=== PATIENT | female | born 1990 | race Caucasian/White ===

== ENCOUNTER 2021-03-03 11:54 | Emergency (ER) | payer MEDICAID, SELFPAY ==
--- NOTE | ~2021-03-03 | US_ITS ---
EXAMINATION: US OB <= 14 weeks fetus DATE: 03/03/2021 14:49 INDICATION: Vaginal bleeding during first trimester of TECHNIQUE: Real-time pelvic ultrasound utilizing both a transvaginal and transabdominal probe was pe rformed. The interpreting radiologist was not present for the study. COMPARISON: None. FINDINGS: The uterus measures 7.8 x 6.0 x 6.9 cm. There is an intrauterine gestational sac. A yolk sac and fet al pole are identified. The crown rump length measures 8 mm, which correlates with an estimated gesta tional age of 6 weeks and 5 days. heart motion is identified measuring 122 beats per minute (bp m) by M-mode Doppler. 6 x 3 x 2 mm anechoic subchorionic hematoma. The right ovary measures 2.4 x 2.5 x 2.1 cm. The left ovary measures 2.2 x 2.1 x 1.6 cm. Vascular mariama w with arterial waveforms identified in both ovaries on color Doppler There is no free fluid in the p che[place]. IMPRESSION: 1. Single living fetus with heart rate of 122 bpm. 2. Gestational age by ultrasound of 6 weeks 5 day(s) +/- 4 day(s) with ultrasound estimated date of delivery (AISLINN) of 10/22/2021. 3. 5 x 3 x 2 mm subchorionic hematoma. Reviewed, dictated and finalized at location A. IMPRESSION: 1. Single living fetus with heart rate of 122 bpm. 2. Gestational age by ultrasound of 6 weeks 5 day(s) +/- 4 day(s) with ultraso und estimated date of delivery (AISLINN) of 10/22/2021. 3. 5 x 3 x 2 mm subchorionic hematoma.
[2021-03-03 11:57] VITALS: BP 105/90; PULSE 98; RESP 18; TEMP 36.5; O2SAT 100
[2021-03-03 12:39] LABS: Basophils Absolute Auto 0.1 K/mm3 (0.0-0.1); Basophils Percent Auto 0.7 % (0.2-1.2); Eosinophils Absolute Auto 0.1 K/mm3 (0-0.3); Eosinophils Percent Auto 1.6 % (0-4.4); Hematocrit 37.5 % (37.0-47.0); Hemoglobin 12.2 g/dL (12.0-15.0); Immature Granulocyte Absolute 0.03 K/mm3 (0.00-0.031); Immature Granulocyte Percent A 0.4 % (0-0.5); Lymphocytes Absolute Auto 1.35 K/mm3 (0.9-3.2); Lymphocytes Percent Auto 16.2 % (18.3-44.2); Mean Corpuscular HGB Conc 32.5 g/dl (32-36); Mean Corpuscular Hemoglobin 32.3 pg (26-34); Mean Corpuscular Volume 99.2 fl (80-100); Mean Platelet Volume 9.2 fl (7.4-10.4); Monocytes Absolute Auto 0.6 K/mm3 (0.1-0.6); Monocytes Percent Auto 7.5 % (2.6-8.5); Neutrophils Absolute Auto 6.2 K/mm3 (1.3-6.7); Neutrophils Percent Auto 73.6 % (45.5-73.1); Platelet Count Result 251 k/mm3 (150-375); Red Blood Count 3.78 M/mm3 (4.2-5.4); Red Cell Distribution Width 12.8 % (11.5-14.5); White Blood Count 8.4 K/mm3 (4.5-10.0)
--- NOTE | 2021-03-03 13:56 | ED.FEMALEGU ---
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 Stated complaint: vaginal bleeding, cramping, Time Seen by Provider: 03/03/21 13:01 Source: patient Mode of arrival: ambulatory Limitations: no limitations History of Present Illness HPI Narrative: 30-year-old female Here for evaluation of first trimester vaginal bleeding Patient is a Her last normal period was January 12 which would make her approximately 7 weeks by dates, however she does say that she has had some spotting since then and that her periods are always irregular She had a positive home test earlier this week and is 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 She reports some mild discomfort in the lower right abdomen and some brownish vaginal discharge which has been present for 3 or 4 days but increased today She does not report gross blood or clots No urinary symptoms Review of Systems Review of Systems: All systems reviewed & are unremarkable except as noted in HPI and below Constitutional: Constitutional: Reports no additional constitutional complaints, Denies chills, Denies fever(s) and Denies headache(s) Eyes: Eyes: Reports no additional eye complaints and Denies change in vision ENT: Denies headache(s) and Denies sore throat Cardiovascular: Cardiovascular: Denies chest pain and Denies dyspnea Respiratory: Respiratory: Denies cough and Denies dyspnea Gastrointestinal: Gastrointestinal: Denies abdominal pain, Denies diarrhea and Denies vomiting Genitourinary: Genitourinary: Denies urinary frequency and Denies dysuria Musculoskeletal: Musculoskeletal: Denies deformity, Denies arthralgias, Denies joint swelling and Denies numbness Integumentary/Breasts: Skin/Breast: Denies rash and Denies wounds Neurologic: Denies headache(s), Denies focal weakness and Denies numbness Psychiatric: Psychiatric: Reports no additional psychiatric complaints Endocrine: Endocrine: Reports no additional endocrine complaints Hematologic/Lymphatic: Hematologic/Lymphatic: Reports no additional hematologic/lymphatic complaints Allergic/Immunologic: Allergic/Immunologic: Reports no additional allergic/immunologic complaints [facility] Past Medical History Medical History (Updated 03/03/21 @ 15:35 by Lex Snyder MD) Therapeutic Exam Const: General: cooperative, no acute distress and alert Nutritional Appearance: thin Orientation/consciousness: patient oriented x3 (alert) HENMT: Head: normal to inspection, normocephalic and atraumatic Ears: external ears normal General nose exam: no epistaxis Eyes: Conjunctivae: conjunctivae normal EOM: EOMs intact bilaterally Neck: Neck: normal visual inspection, supple and no JVD Resp: Effort & Inspection: normal respiratory effort and not labored Auscultation: no rales, no rhonchi, no wheezes and other (BS =) Cardio: Rate: regular rate Rhythm: regular rhythm Heart sounds: no murmurs GI: Inspection: non-distended GI Palp: Yes Soft to palpation, No Tenderness to palpation present (GI), No Guarding due to palpation present (GI) and No Rebound tenderness present : General: Yes no CVA tenderness Other: Cervix is closed, there is no blood, there is a little bit of mucoid discharge Skin: General skin exam: normal color and no rashes or lesions noted Neuro: General: patient oriented x3 (alert) and moves all extremities Speech: normal speech Extrem: General: normal to inspection and no pedal edema Psych: Affect: normal affect Course Course Emergency Course: Did discuss that spotting in the first trimester confers a risk of miscarriage, and that the heart rate he has may be a little slower than would like to see so will be important for her to be closely followed up in the office this week Vital Signs Vital signs: Vital Signs Temperature 36.5 C 03/03/21 11:57 Pulse Rate 98 03/03/21 11:57 Respiratory Rate 18 03/03/21 11:57 Blood Pressure 105/90 03/03/21 11:57
[2021-03-03 15:44] VITALS: BP 117/79; PULSE 104; RESP 16; O2SAT 100
== END 2021-03-03 15:44 | disposition home or self-care (01) ==
PROVIDERS: Emergency Provider Emergency Medicine
DX: O20.0 Threatened abortion (principal); Z3A.01 Less than 8 weeks gestation of pregnancy
CPT/HCPCS: 36415; 76801; 84702; 85025; 85461; 99284

== ENCOUNTER 2021-04-09 09:59 | Outpatient (CLI) | payer MEDICAID, SELFPAY ==
[2021-04-09 11:23] LABS: Vitamin D 25 Hydroxy 23.6 ng/mL
[2021-04-09 11:25] LABS: Basophils Absolute Auto 0.1 K/mm3 (0.0-0.1); Basophils Percent Auto 0.6 % (0.2-1.2); Eosinophils Absolute Auto 0.2 K/mm3 (0-0.3); Eosinophils Percent Auto 1.6 % (0-4.4); Hematocrit 33.3 % (37.0-47.0); Hemoglobin 11.4 g/dL (12.0-15.0); Immature Granulocyte Absolute 0.05 K/mm3 (0.00-0.031); Immature Granulocyte Percent A 0.5 % (0-0.5); Lymphocytes Absolute Auto 1.28 K/mm3 (0.9-3.2); Lymphocytes Percent Auto 12.6 % (18.3-44.2); Mean Corpuscular HGB Conc 34.2 g/dl (32-36); Mean Corpuscular Hemoglobin 32.6 pg (26-34); Mean Corpuscular Volume 95.1 fl (80-100); Mean Platelet Volume 9.4 fl (7.4-10.4); Monocytes Absolute Auto 0.6 K/mm3 (0.1-0.6); Monocytes Percent Auto 6.1 % (2.6-8.5); Neutrophils Percent Auto 78.6 % (45.5-73.1); Platelet Count Result 291 k/mm3 (150-375); Red Cell Distribution Width 13.1 % (11.5-14.5); White Blood Count 10.1 K/mm3 (4.5-10.0)
[2021-04-09 11:38] LABS: Thyroid Stimulating Hormone 0.963 uIU/mL (0.465-4.680)
[2021-04-09 11:43] LABS: Hepatitis B Surface Antigen Negative (Negative); Rubella IgG Antibody 61.4 IU/ML
[2021-04-09 11:50] LABS: HIV 1/2 Ab P24 Ag Result Negative (Negative)
[2021-04-09 11:54] LABS: Hepatitis C Virus Antibody Negative (Negative)
[2021-04-11 13:45] LABS: Varicella IgG Antibody <135.00 Index (>=165.00)
[2021-04-13 07:20] LABS: Rapid Plasma Reagin Non-Reactive (NonReactive)
== END 2021-04-09 10:00 | disposition home or self-care (01) ==
PROVIDERS: Visit Provider Obstetrics & Gynecology
DX: Z34.90 Encounter for supervision of normal pregnancy, unspecified, unspecified trimester (principal)
CPT/HCPCS: 36415; 82306; 84443; 85025; 86592; 86703; 86762; 86787; 86803; 87340; G0432

== ENCOUNTER 2021-05-05 10:58 | Outpatient (CLI) | payer BC, SELFPAY ==
[2021-05-14 19:46] LABS: CF Result NEGATIVE (NEGATIVE); Ethnicity NG
== END 2021-05-05 10:59 | disposition home or self-care (01) ==
PROVIDERS: Visit Provider Obstetrics & Gynecology
DX: Z34.90 Encounter for supervision of normal pregnancy, unspecified, unspecified trimester (principal)
CPT/HCPCS: 36415; 81220

== ENCOUNTER 2021-06-04 10:40 | Outpatient (CLI) | payer BC, SELFPAY ==
--- NOTE | ~2021-06-04 | US_ITS ---
EXAMINATION: US OB /maternal detail DATE: 06/04/2021 11:38 INDICATION: Second trimester anatomic survey TECHNIQUE: Real-time ultrasound of the pelvis was performed. COMPARISON: None. FINDINGS: There is a single living fetus in vertex presentation. The placenta is posterior. There appears to be a venous marcial the placenta near the cord insertion. heart rate is 148 beats per minute (bpm). cardiac activity and movement are noted. The amniotic fluid index is subjectively normal . The following anatomy was identified as normal: 4 chamber heart 3 vessel cord cord insertion kidneys urinary bladder stomach spine diaphragm ventricles cisterna magna cerebellum The following biometric data were obtained: Biparietal diameter (BPD): 5.1 cm; head circumference (HC): 18.9 cm; abdominal circumference (AC): 15 .1 cm; femur length (FL): 3.3 cm. These measurements are concordant. Estimated weight is 256 g +/- 53 g, which correlates with the 73rd percentile when 10/22/2021 is used as estimated date of delivery. As single measurements, these parameters are each equal to the following estimated gestational ages w ith ranges of +/- 2 standard deviations: BPD: 21 weeks 4 days +/- 1 weeks 5 days. HC: 21 weeks 2 days +/- 1 weeks 3 days. AC: 20 weeks 2 days +/- 2 weeks 0 days. FL: 20 weeks 2 days +/- 1 weeks 6 days. estimated gestational age based solely on measurements from this exam is 20 weeks 6 days +/- 1 weeks 3 days. IMPRESSION: 1. Single living fetus in vertex presentation. 2. Estimated weight is 256 g +/- 53 g, which correlates with the 73rd percentile when 10/22/2021 is used as estimated date of delivery. Reviewed, dictated and finalized at location F. CAL CENTER MANAGER IMPRESSION: 1. Single living fetus in vertex presentation. 2. Estimated weight is 256 g +/- 53 g, which correlates with the 73rd per centile when 10/22/2021 is used as estimated date of delivery.
== END 2021-06-04 10:41 | disposition home or self-care (01) ==
PROVIDERS: Visit Provider Obstetrics & Gynecology
DX: Z36.3 Encounter for antenatal screening for malformations (principal)
CPT/HCPCS: 76805

== ENCOUNTER 2021-06-18 11:23 | Observation (INO) | payer BC, SELFPAY ==
--- NOTE | ~2021-06-18 | US_ITS ---
US OB limited 06/18/2021 12:49 Indication: Placental check. Evaluate well-being. Procedure: High-resolution Limited obstetrical ultrasound Comparison: 06/04/2021 Findings: There is a single living intrauterine in vertex presentation. Placenta is posteri or measuring 5.4 cm to the cervix. heart rate is 153 BPM. Amniotic fluid is subjectively normal . Impression: 1: Single living intrauterine in vertex presentation. 2: Posterior placenta without previa. Reviewed, dictated and finalized at location B. MUSICIAN Impression: 1: Single living intrauterine in vertex presentation. 2: Posterior placenta without previa.
--- NOTE | 2021-06-18 11:49 | OBADM ---
This patient, Jignesh Cerna, admitted to the OB room OB Post 115 for observation. Patient/family oriented to hospital policies and general routines including ID bracelet, bed and alarms, visiting hours, pain management, procedures, bathroom and other care routines, personal items, smoking policy, room service/diet, and visiting hours. Patient/Family are encouraged to report perceived risks to care and to ask questions if they do not understand what they are told or what they should do.
--- NOTE | 2021-06-18 11:54 | PC.NURSE ---
FHT doppled at 150
--- NOTE | 2021-06-18 12:02 | PC.NURSE ---
1150- Spoke with Dr. Thompson, orders for placenta check and well being US, FHT doppled at 150 and UA sent.
[2021-06-18 12:24] LABS: Add Urine Microscopic? YES; Appearance Urine Clear (Clear); Bilirubin Urine Negative (Negative); Blood Urine Negative (Negative); Color Urine Straw (Yellow); Glucose Urine UA Negative (Negative); Ketones Urine Negative (Negative); Leukocyte Esterase Ur 1+ LEU/UL (NEGATIVE); Mucus Urine Rare /lpf; Nitrate Urine Negative (Negative); Protein Urine Negative (Negative); RBC Urine 0-2 /hpf (0-2); Specific Grav Ur 1.006 (1.001-1.035); Squamous Epithelial Cell Urine Rare /hpf (Few); Urobilinogen Urine Negative mg/dL (<2.0)
--- NOTE | 2021-06-18 13:02 | PC.NURSE ---
1255- Reviewed urine and US results. Orders to discharge to home on pelvic rest.
--- NOTE | 2021-07-15 22:59 | PM.OBTRLD ---
OB - Triage/Final Diagnosis Visit Information Comments/Additional reasons for admission: I have assessed the risk for this patient, Jignesh Cerna, and determined that she would benefit from observation care. Evaluation Laboratory results: Laboratory Tests 06/18/21 11:45 Urine Color Straw Urine Appearance Clear Urine pH 8.0 Ur Specific [place] 1.006 Urine Protein Negative Urine Glucose (UA) Negative Urine Ketones Negative Ur Blood (Man) Negative Urine Nitrate Negative Urine Bilirubin Negative Urine Urobilinogen Negative Ur Leukocyte Esterase 1+ H Urine RBC 0-2 Urine WBC 4-6 H Ur Squamous Epith Cells Rare Urine Mucus Rare Final Diagnosis (1) Spotting affecting in second trimester: Code(s): O26.852 - Spotting complicating , second trimester Status: Acute
== END 2021-06-18 13:02 | disposition home or self-care (01) ==
PROVIDERS: Admitting Provider Obstetrics & Gynecology; Visit Provider Obstetrics & Gynecology
DX: O26.852 Spotting complicating pregnancy, second trimester (principal); Z3A.22 22 weeks gestation of pregnancy
CPT/HCPCS: 76815; 81001; 87086; G0378; G0379

== ENCOUNTER 2021-07-02 09:19 | Outpatient (CLI) | payer BC, SELFPAY ==
[2021-07-02 11:03] LABS: Hematocrit 30.6 % (37.0-47.0); Mean Corpuscular HGB Conc 32.7 g/dl (32-36); Mean Corpuscular Hemoglobin 32.6 pg (26-34); Mean Corpuscular Volume 99.7 fl (80-100); Mean Platelet Volume 9.2 fl (7.4-10.4); Platelet Count Result 273 k/mm3 (150-375); Red Blood Count 3.07 M/mm3 (4.2-5.4); White Blood Count 9.8 K/mm3 (4.5-10.0)
[2021-07-02 11:13] LABS: Glucose 1 Hour PP 50gm Dose 112 mg/dL
[2021-07-02 11:52] LABS: Free T4 Free Thyroxine 0.75 ng/mL (0.78-2.19)
== END 2021-07-02 09:20 | disposition home or self-care (01) ==
LOC: ANHLAB 09:22
PROVIDERS: Visit Provider Obstetrics & Gynecology
DX: Z34.90 Encounter for supervision of normal pregnancy, unspecified, unspecified trimester (principal); R00.2 Palpitations
CPT/HCPCS: 36415; 82947; 84439; 84443; 85027

== ENCOUNTER 2021-07-30 09:53 | Outpatient (CLI) | payer BC, SELFPAY ==
[2021-07-30 10:54] LABS: Thyroid Stimulating Hormone 0.912 uIU/mL (0.465-4.680)
[2021-07-30 10:57] LABS: Free T4 Free Thyroxine 0.93 ng/mL (0.78-2.19)
[2021-07-30 11:03] LABS: HIV 1/2 Ab P24 Ag Result Negative (Negative)
[2021-07-31 10:36] LABS: Rapid Plasma Reagin Non-Reactive (NonReactive)
[2021-08-02 05:39] LABS: Triiodothyronine T3 Free 2.8 pg/mL (2.3-4.2)
== END 2021-07-30 09:54 | disposition home or self-care (01) ==
LOC: ANHLAB 09:56
PROVIDERS: Visit Provider Obstetrics & Gynecology
DX: Z34.90 Encounter for supervision of normal pregnancy, unspecified, unspecified trimester (principal); R79.89 Other specified abnormal findings of blood chemistry
CPT/HCPCS: 36415; 84439; 84443; 84481; 86592; 86703; G0432

== ENCOUNTER 2021-09-24 13:34 | Outpatient (CLI) | payer BC, SELFPAY ==
--- NOTE | ~2021-09-24 | US_ITS ---
EXAMINATION: US OB follow up DATE: 09/24/2021 15:16 INDICATION: Uterine size-date discrepancy. Third trimester . TECHNIQUE: Real-time ultrasound of the pelvis was performed. The interpreting radiologist was not pre sent for the study. COMPARISON: 06/18/2021 FINDINGS: There is a single living fetus in vertex presentation. The placenta is fundal. heart rate is 1 40 beats per minute (bpm). The amniotic fluid index is 8.6 cm, which is normal (5th%-95%: 7.7-24.9 c m at 36 weeks estimated gestational age). The following biometric data were obtained: BPD: 9.5 cm -> 38 weeks 5 days Head circumference: 32.7 cm -> 37 weeks 1 days Abdominal circumference: 33.0 cm -> 36 weeks 6 days Femur length: 7.0 cm -> 35 weeks 5 days Brachycephaly with mildly increased cephalic index of 86.8 (normal range 70.0-86.0). These measurements are otherwise concordant. Head circumference to abdominal circumference ratio: 0.99 (normal range 0.92-1.05). Estimated weight: 3047 g (+/-) 457 g or 6 lbs. 11 oz. (+/-) 16 oz. IMPRESSION: 1. Single living fetus in vertex presentation with heart rate of 140 bpm. 2. Normal amniotic fluid index of 20.6 cm. 3. Estimated weight is 65th percentile by Hadlock criteria when 10/19/2021 is used as the estima mel date of delivery (AISLINN). Please correlate with clinical information or earlier ultrasounds for mos t accurate AISLINN. 4. Brachycephaly with mildly increased cephalic index of 86.8. Reviewed, dictated and finalized at location A. IMPRESSION: 1. Single living fetus in vertex presentation with heart rate of 140 bpm. 2. Normal amniotic fluid index of 20.6 cm. 3. Estimated weight is 65th percentile by Hadlock criteria when 10/19/2021 is used as the estimated date of delivery (AISLINN). Please correlate with clinica l information or earlier ultrasounds for most accurate AISLINN. 4. Brachycephaly with mildly increased cephalic index of 86.8.
== END 2021-09-24 13:35 | disposition home or self-care (01) ==
LOC: ANHIMG 13:35
PROVIDERS: Visit Provider Obstetrics & Gynecology
DX: O26.843 Uterine size-date discrepancy, third trimester (principal); Q75.0 Craniosynostosis; Z3A.00 Weeks of gestation of pregnancy not specified
CPT/HCPCS: 76816

== ENCOUNTER 2021-10-19 14:58 | Inpatient (IN) | payer BC, SELFPAY ==
[2021-10-19] VITALS (76 sets, daily range): BP systolic 93–145; BP diastolic 49–116; PULSE 86–136; TEMP 36.1–36.8; O2SAT 95–100; BMI 34.1
[2021-10-19] MEDS: LACTATED RINGERS 1,000 ML 125 ML IV CONT ×3 (16:59→19:22)
[2021-10-19 17:02] LABS: Basophils Percent Auto 0.3 % (0.2-1.2); Eosinophils Absolute Auto 0.1 K/mm3 (0-0.3); Eosinophils Percent Auto 0.5 % (0-4.4); Hematocrit 37.1 % (37.0-47.0); Hemoglobin 12.4 g/dL (12.0-15.0); Immature Granulocyte Absolute 0.09 K/mm3 (0.00-0.031); Immature Granulocyte Percent A 0.9 % (0-0.5); Lymphocytes Absolute Auto 0.93 K/mm3 (0.9-3.2); Lymphocytes Percent Auto 9.1 % (18.3-44.2); Mean Corpuscular HGB Conc 33.4 g/dl (32-36); Mean Corpuscular Hemoglobin 32.3 pg (26-34); Mean Corpuscular Volume 96.6 fl (80-100); Mean Platelet Volume 10.3 fl (7.4-10.4); Monocytes Absolute Auto 0.6 K/mm3 (0.1-0.6); Monocytes Percent Auto 5.4 % (2.6-8.5); Neutrophils Absolute Auto 8.6 K/mm3 (1.3-6.7); Neutrophils Percent Auto 83.8 % (45.5-73.1); Platelet Count Result 214 k/mm3 (150-375); Red Blood Count 3.84 M/mm3 (4.2-5.4); Red Cell Distribution Width 14.4 % (11.5-14.5); White Blood Count 10.2 K/mm3 (4.5-10.0)
--- NOTE | 2021-10-19 18:01 | WPDANESEPPF ---
Anes - Initial Pre Proc Eval Procedure: labor epidural Date/Time: 10/19/21 18:01 Surgeon: Faizan Thompson MD Pre Op Diagnosis: labor pain Pre Op Diagnosis: Labor Patient Data Age: 31 Gender: F Height: 1.65 m Weight: 93 kg Last Vital Signs Temp 36.2 C L 10/19/21 17:59 Pulse 102 H 10/19/21 18:00 BP 118/86 10/19/21 18:00 Pulse Ox 100 10/19/21 17:59 O2 Del Method Room Air 10/19/21 17:01 Allergies Allergy/AdvReac Type Severity Reaction Status Date / Time No Known Allergies Allergy Verified 10/19/21 17:08 Home Medications Medication Instructions Recorded Confirmed Type [id number] 400 mcg-om3 35 mg-dha 25 1 tablet PO TID 03/07/21 10/19/21 History mg-epa 5 mg-fish oil chewable tablet ferrous sulfate 325 mg (65 mg 325 mg PO DAILY 07/30/21 10/19/21 History iron) tablet,delayed release levothyroxine 25 mcg capsule 25 mcg PO DAILY #90 caps 08/02/21 10/19/21 Rx diphenhydramine HCl 25 mg capsule 25 mg PO HS PRN Allergy Symptoms 10/19/21 10/19/21 History (Benadryl) Laboratory Tests 10/19/21 10/19/21 10/19/21 16:54 16:54 16:54 WBC 10.2 K/mm3 H K/mm3 (4.5-10.0) RBC 3.84 M/mm3 L M/mm3 (4.2-5.4) Hgb 12.4 g/dL g/dL (12.0-15.0) Hct 37.1 % % (37.0-47.0) MCV 96.6 fl fl (80-100) MCH 32.3 pg pg (26-34) MCHC 33.4 g/dl g/dl (32-36) RDW 14.4 % % (11.5-14.5) Plt Count 214 k/mm3 k/mm3 (150-375) MPV 10.3 fl fl (7.4-10.4) Immature Gran % (Auto) 0.9 % H % (0-0.5) Neut % (Auto) 83.8 % H % (45.5-73.1) Lymph % (Auto) 9.1 % L % (18.3-44.2) O'Brien % (Auto) 5.4 % % (2.6-8.5) Eos % (Auto) 0.5 % % (0-4.4) Baso % (Auto) 0.3 % % (0.2-1.2) Lymph # (Auto) 0.93 K/mm3 K/mm3 (0.9-3.2) O'Brien # (Auto) 0.6 K/mm3 K/mm3 (0.1-0.6) Eos # (Auto) 0.1 K/mm3 K/mm3 (0-0.3) Baso # (Auto) 0.0 K/mm3 K/mm3 (0.0-0.1) Abs Immat Gran (auto) 0.09 K/mm3 H K/mm3 (0.00-0.031) Absolute Neuts (auto) 8.6 K/mm3 H K/mm3 (1.3-6.7) Absolute Nucleated RBC 0.0 K/mm3 K/mm3 (0.0-0.012) Nucleated RBC % 0.0 % % (0.0-0.2) RPR Pending Blood Type A Positive Antibody Screen Negative Patient hx anesthesia problems: none Family hx anesthesia problems: none Results Review: All pre-operative results and documents have been reviewed as part of the pre-operative evaluation. [facility] Past Medical History Medical History (Updated 10/19/21 @ 18:01 by Blaze Yan DO) x1 Anxiety Bipolar disorder Hypothyroidism Surgical History Surgical History History of placement of ear tubes Family History Family History Father Depression Anxiety Mother Breast cancer Diagnosed at age 58 Anxiety Depression Sibling Alcoholism Anxiety Depression Grandparent Alcoholism Breast cancer Hypertension Cerebrovascular accident Grandparent Alcoholism Social History Social History Smoking status: Former smoker Tobacco type: cigarettes Smoking end date: 01/24/21 Alcohol intake: never Substance use: never Spiritual care concerns: No Anes - Eval Final PreProcedure Day of Procedure 10/19/21 18:01 Patient weight: obese ASA classification: III Anesthetic plan: proceed Anesthesia type and monitoring: regional epidural and standard monitoring Results Review: All pre-operative results and documents have been reviewed as part of the pre-operative evaluation. Informed Consent: The patient's anesthetic plan and its attendant risks and benefits were discussed with the patient/family/POA. Questions were solicited and answ
[2021-10-19] MEDS: ONDANSETRON INJ 4 MG/2 ML VIAL IV PUSH (20:18)
[2021-10-19] MEDS: OXYTOCIN 30 UNITS/NS 500 ML 30 UNITS/500 ML BAG 999 UNITS IV CONT (21:33)
[2021-10-19] MEDS: OXYTOCIN 30 UNITS/NS 500 ML 30 UNITS/500 ML BAG 125 UNITS IV CONT (21:56)
--- NOTE | 2021-10-19 21:57 | PM.IMHP ---
H&P: HPI History of Present Illness Date/Time: 10/19/21 21:57 Patient is a LMP 01/12/21 currently 40 weeks gestation with AISLINN 10/19/2021 who presented to labor and delivery with complaints of contractions. Patient reports contractions throughout the day. Patient reports an increase in frequency and intensity of contractions. Upon arrival to labor and delivery, patient was noted to be approximately 5 cm dilated. Patient was observed and continued to make cervical change. Decision was made to admit patient in active labor. Chief Complaint: Contractions Review of Systems Review of Systems: All systems reviewed & are unremarkable except as noted in HPI and below Constitutional: Constitutional: Reports no additional constitutional complaints, Denies chills, Denies fever(s) and Denies headache(s) Eyes: Eyes: Reports no additional eye complaints and Denies change in vision ENT: Denies headache(s) and Denies sore throat Cardiovascular: Cardiovascular: Denies chest pain and Denies dyspnea Respiratory: Respiratory: Denies cough and Denies dyspnea Gastrointestinal: Gastrointestinal: Denies abdominal pain, Denies diarrhea and Denies vomiting Genitourinary: Genitourinary: Denies urinary frequency and Denies dysuria Musculoskeletal: Musculoskeletal: Denies deformity, Denies arthralgias, Denies joint swelling and Denies numbness Integumentary/Breasts: Skin/Breast: Denies rash and Denies wounds Neurologic: Denies headache(s), Denies focal weakness and Denies numbness Psychiatric: Psychiatric: Reports no additional psychiatric complaints Endocrine: Endocrine: Reports no additional endocrine complaints Hematologic/Lymphatic: Hematologic/Lymphatic: Reports no additional hematologic/lymphatic complaints Allergic/Immunologic: Allergic/Immunologic: Reports no additional allergic/immunologic complaints [facility] Past Medical History Medical History x1 Anxiety Bipolar disorder Hypothyroidism Surgical History Surgical History History of placement of ear tubes Family History Family History Father Depression Anxiety Mother Breast cancer Diagnosed at age 58 Anxiety Depression Sibling Alcoholism Anxiety Depression Grandparent Alcoholism Breast cancer Hypertension Cerebrovascular accident Grandparent Alcoholism Social History Social History Smoking status: Former smoker Tobacco type: cigarettes Smoking end date: 01/24/21 Alcohol intake: never Substance use: never Spiritual care concerns: No Meds Home Medications and Allergies Home Medications Medication Instructions Recorded Confirmed Type [id number] 400 mcg-om3 35 mg-dha 25 1 tablet PO TID 03/07/21 10/19/21 History mg-epa 5 mg-fish oil chewable tablet ferrous sulfate 325 mg (65 mg 325 mg PO DAILY 07/30/21 10/19/21 History iron) tablet,delayed release levothyroxine 25 mcg capsule 25 mcg PO DAILY #90 caps 08/02/21 10/19/21 Rx diphenhydramine HCl 25 mg capsule 25 mg PO HS PRN Allergy Symptoms 10/19/21 10/19/21 History (Benadryl) Allergies Allergy/AdvReac Type Severity Reaction Status Date / Time No Known Allergies Allergy Verified 10/19/21 17:08 Vital Signs Vital Signs - 24 hr 10/19/21 16:46 10/19/21 17:00 10/19/21 15:16 Temperature 36.1 C L Pulse Rate 97 89 Blood Pressure 119/76 129/82 Pulse Oximetry Oxygen Delivery 10/19/21 17:15 10/19/21 17:30 10/19/21 17:46 Temperature Pulse Rate 92 103 H Blood Pressure 124/88 134/89 Pulse Oximetry 99 Oxygen Delivery 10/19/21 17:47 10/19/21 17:51 10/19/21 17:52 Temperature Pulse Rate 101 H 101 H Blood Pressure 140/79 128/82 Pulse Oximetry 98 Oxygen Delivery 10/19/21 17:54 10/19/21 17:56
--- NOTE | 2021-10-19 22:06 | PM.OBPRVD ---
OB - Delivery Note Procedure Delivery date: 10/19/21 Procedure: The patient is a 31-year-old now who presented to labor and delivery in active labor on 10/19/2021 at 40 weeks gestation. Patient was admitted and was noted to be 5 cm dilated at time of presentation. Patient continued to make progressive cervical change on her own. Patient became uncomfortable and requested an epidural for pain management which was placed without difficulty. Patient continued to progress on her own and was noted to be fully dilated at 7:45 p.m. Patient was encouraged to push. She experienced spontaneous rupture of membranes at 8:07 p.m. Patient continued to push and was found to be pushing well. Patient was prepped and draped for delivery. At 9:30 p.m., patient delivered infant head atraumatically and without difficulty in MIRA presentation. Occiput restituted to maternal left side. With subsequent push, the 's neck, shoulders, and rest of body delivered without difficulty. Infant was crying spontaneously. Infant's nose and mouth were suctioned with bulb suction. was placed on maternal abdomen where care was assumed by awaiting nursing staff. Delayed cord clamping was performed for approximately 60 seconds. Cord was clamped and cut. A segment of cord was collected for cord gases. Cord blood was collected. The placenta was delivered spontaneously and intact. Uterine fundus was noted to be firm with massage. On inspection, a second-degree perineal laceration was noted. This laceration was repaired with 2-0 vicryl in the usual fashion. Excellent hemostasis was noted. Estimated blood loss for entire delivery was 250 cc. The infant was a liveborn male , Apgars 9 and 9, weighing 9 lbs 4 oz. Both mother and baby doing well at end of delivery. Delivery monitor: External FHT and External Uterine Route of delivery: Laceration Description: Perineal - 2nd Degree Delivery repair: vicryl (2-0) Specimen: Yes (cord blood and cord gases) Quantitative Blood Loss (ml): 250 Anesthesia type: Epidural Disposition: Floor Complications: No immediate complications Baby Date of : 10/19/21 Time of : 21:30 Weeks of gestation at delivery: 40 Infant gender: Male Weight (pounds): 9 Weight (ounces): 4 presentation: vertex position: Left Occiput Anterior Placenta delivery description: Spontaneous Cord Vessel Description: 3 Vessels and Delayed Cord Clamping (x60s) score one minute: 9 score five minutes: 9 AMG Delivery Billing Delivery Delivery: Delivery Charge
[2021-10-19] MEDS: IBUPROFEN 600 MG TABLET PO (23:00)
[2021-10-20 00:14] VITALS: BP 125/72; PULSE 105; RESP 18; TEMP 37
--- NOTE | 2021-10-20 00:14 | ADMGEN ---
This patient, Jignesh Cerna, was admitted to OB 2nd Floor Room 285-00. Patient/family oriented to hospital policies and general routines including ID bracelet, bed and alarms, visiting hours, pain management, procedures, bathroom and other care routines, personal items, smoking policy, room service/diet, and visiting hours. Information on how to activate the Rapid Response Team has been discussed. Patient/Family are encouraged to report perceived risks to care and to ask questions if they do not understand what they are told or what they should do.
[2021-10-20 03:45] VITALS: BP 102/62; PULSE 95; RESP 18; TEMP 36.7
[2021-10-20 05:07] LABS: Hematocrit 29.3 % (37.0-47.0); Hemoglobin 9.2 g/dL (12.0-15.0)
[2021-10-20] MEDS: LEVOTHYROXINE SODIUM 25 MCG TABLET PO (06:21)
[2021-10-20] MEDS: IBUPROFEN 600 MG TABLET PO ×3 (06:24→20:20)
[2021-10-20] MEDS: HYDROcodone/acetaminophen (*CRX) 5-325 MG TABLET 1 TAB PO ×2 (06:24→20:20)
[2021-10-20] MEDS: MULTIVIT/MIN/PREN/FOL AC/IRON TABLET 1 TAB PO (07:24)
[2021-10-20] MEDS: POLYSACCHARIDE IRON COMPLEX 150 MG CAPSULE PO ×2 (07:24→17:53)
[2021-10-20] MEDS: DOCUSATE SODIUM 100 MG CAPSULE PO ×2 (07:24→17:53)
[2021-10-20 07:39] VITALS: BP 104/61; PULSE 87; RESP 18; TEMP 36.8; O2SAT 99
--- NOTE | 2021-10-20 09:04 | P.PNOB_ITS ---
OB - PN: Subj Subjective Date/time seen: 10/20/21 09:04 Doing well. Pain controlled with medication. Minimal lochia. Ambulating without difficulty. Voiding well. OB - PN: Obj Data Labs CBC & Chem 7: 10/20/21 03:27 Labs: Laboratory Results - last 24 hr 10/19/21 10/19/21 10/20/21 16:54 16:54 03:27 WBC 10.2 H RBC 3.84 L Hgb 12.4 9.2 L D Hct 37.1 29.3 L MCV 96.6 MCH 32.3 MCHC 33.4 RDW 14.4 Plt Count 214 MPV 10.3 Immature Gran % (Auto) 0.9 H Neut % (Auto) 83.8 H Lymph % (Auto) 9.1 L Spencer % (Auto) 5.4 Eos % (Auto) 0.5 Baso % (Auto) 0.3 Lymph # (Auto) 0.93 Spencer # (Auto) 0.6 Eos # (Auto) 0.1 Baso # (Auto) 0.0 Abs Immat Gran (auto) 0.09 H Absolute Neuts (auto) 8.6 H Absolute Nucleated RBC 0.0 Nucleated RBC % 0.0 Blood Type A Positive Antibody Screen Negative OB - PN A/P Assessment and Plan (1) Normal spontaneous vaginal delivery: Code(s): O80 - Encounter for full-term uncomplicated delivery Status: Acute Assessment and Plan: PPD#1 doing well continue routine care anticipate dc home tomorrow Time Spent With Patient Time: Total time spent is greater than 50% in coordination of care (as documented) at patient's floor/unit and/or counseling patient: Exam Const: General: cooperative, healthy appearing, comfortable and no acute distress GI: Inspection: non-distended GI Palp: No abdominal tenderness and Yes Soft to palpation Other: fundus firm below umbilicus Extrem: Right lower extremity: no edema Left lower extremity: no edema Other: no calf tenderness
--- NOTE | 2021-10-20 09:54 | WPDANLDPN2 ---
Anes-Prog Note L&D Date/Time: 10/20/21 09:54 Neuro status: Neuro function grossly intact. Cardiovascular status: normal Respiratory status: normal Airway patency: baseline Mental status: baseline Post-Op hydration status: normal Vital Signs: Last Vital Signs Temp 36.8 C 10/20/21 07:39 Pulse 87 10/20/21 07:39 Resp 18 10/20/21 07:39 BP 104/61 10/20/21 07:39 Pulse Ox 99 10/20/21 07:39 O2 Del Method Room Air 10/20/21 03:45 Pain score (VAS): 0 I/O: Intake & Output 10/19/21 10/20/21 10/20/21 23:59 07:59 15:59 Intake Total 3000 500 Output Total 250 Balance 2750 500 Post-procedural complaints: none Patient feedback: Patient satisfied with anesthetic care.
[2021-10-20 12:15] VITALS: BP 114/64; PULSE 90; RESP 18; TEMP 36.4; O2SAT 99
[2021-10-20 16:00] VITALS: BP 102/70; PULSE 75; RESP 18; TEMP 36.4; O2SAT 99
[2021-10-20 19:40] VITALS: BP 105/68; PULSE 93; RESP 18; TEMP 36.4; O2SAT 99
[2021-10-21 07:45] VITALS: BP 119/76; PULSE 100; RESP 18; TEMP 36.7; O2SAT 96
[2021-10-21] MEDS: LEVOTHYROXINE SODIUM 25 MCG TABLET PO (07:58)
--- NOTE | 2021-10-21 08:59 | PM.OBPNVD ---
OB - PN: Subj Subjective Date/time seen: 10/21/21 08:59 Patient doing well. Denies significant pain. Minimal lochia. Ambulating without difficulty. Voiding well, however, reports episode of incontinence. Denies any dysuria. OB - PN: Obj Data Labs CBC & Chem 7: 10/20/21 03:27 OB - PN A/P Assessment and Plan (1) Normal spontaneous vaginal delivery: Code(s): O80 - Encounter for full-term uncomplicated delivery Status: Acute Assessment and Plan: PPD#2 doing well continue routine care will send U Cx to r/o infection discharge home in stable condition emergency precautions reviewed f/u in office in 4-6 weeks for visit Time Spent With Patient Time: Total time spent is greater than 50% in coordination of care (as documented) at patient's floor/unit and/or counseling patient: Review of Systems Gastrointestinal: Gastrointestinal: Reports as per HPI and Reports no additional gastrointestinal complaints Genitourinary: Genitourinary: Reports no additional female genitourinary complaints and Reports as per HPI Exam Const: General: cooperative, healthy appearing, comfortable and no acute distress GI: Inspection: normal to inspection and non-distended GI Palp: No abdominal tenderness and Yes Soft to palpation Other: fundus firm below umbilicus Extrem: Right lower extremity: no edema Left lower extremity: no edema Other: no calf tenderness
--- NOTE | 2021-10-21 09:03 | PM.OBDSVD ---
DS: Admitting Diagnosis Discharge Date 10/21/21 Admitting Diagnosis IUP at 40w gestation Active labor OB - DS: Summary OB Procedures : None OB Procedures Intrapartum: Spontaneous Vag Delivery OB Procedures: : None Time Spent with Patient Time attestation: Total time spent providing and/or coordinating discharge services: Discharge Plan Discharge Attending physician on discharge: Ayala Sierra Discharging Clinician: Ayala Sierra Anticipated Discharge Date/Time: 10/21/21 09:03 Patient Disposition: Home, Self-Care Activity: as tolerated and pelvic rest Diet: regular Discharge Instructions: Call office ([phone]) to schedule a visit in 4-6 weeks. You may take Ibuprofen 600mg every 6 hours as needed for pain. Pain medication may make you constipated. It may be helpful to take an hkpd-cdf-xcwnkno stool softener, such as Colace and/or Senokot, along with the pain medication to help lessen constipation. Call office or go to ED for pain not controlled with medication, headache, chest pain, shortness of breath, fever, chills, persistent nausea or vomiting, severe abdominal pain, heavy vaginal bleeding >2 pads/hour, foul vaginal discharge or odor, or problems with your breasts. Patient Instructions: Antibiotic Form Stand Alone Forms: General Discharge Information Follow-up/Referrals: Faizan Thompson MD [Physician] - Discharge Medications: Continued [id number]-[id number]-wpy-dupw oil 400 mcg-35 mg -25 mg-5 mg tablet,chewable 1 tablet PO TID diphenhydramine HCl [Benadryl] 25 mg Capsule 25 mg PO HS PRN (Reason: Allergy Symptoms) Label Comments: allergies levothyroxine 25 mcg capsule 25 mcg PO DAILY Qty: 90 1RF Discontinued ferrous sulfate 325 mg (65 mg iron) tablet,delayed release (DR/EC) 325 mg PO DAILY Date of admission: 10/19/21 14:58 Primary Care Provider: UNKNOWN,DOCTOR Admitting Provider: Faizan Thompson Attending physician on admission: Faizan Thompson Condition: Stable
[2021-10-21] MEDS: DOCUSATE SODIUM 100 MG CAPSULE PO (09:32)
[2021-10-21] MEDS: POLYSACCHARIDE IRON COMPLEX 150 MG CAPSULE PO (09:32)
[2021-10-21] MEDS: MULTIVIT/MIN/PREN/FOL AC/IRON TABLET 1 TAB PO (09:32)
[2021-10-21] MEDS: IBUPROFEN 600 MG TABLET PO (09:33)
--- NOTE | 2021-10-21 10:44 | PC.NURSE ---
Patient viewed the discharge video Mother & Baby Care, The First Two Weeks . Patient was given the opportunity and encouraged to ask questions. Patient verbalized understanding of information shared and has been given the mother/baby guide for home reference.
[2021-10-22 06:27] LABS: Rapid Plasma Reagin Non-Reactive (NonReactive)
[2021-10-23 10:11] VITALS: BP 114/75; PULSE 98; RESP 22; TEMP 37.3; O2SAT 99
== END 2021-10-21 11:25 | disposition home or self-care (01) | DRG 560 ==
LOC: ANHOB2 10-21 10:11 → ANHLDR 10-24 10:57 → ANHOB2 10-24 10:57
PROVIDERS: Admitting Provider Student in an Organized Health Care Education/Training Program; Visit Provider Student in an Organized Health Care Education/Training Program
DX: O99.284 Endocrine, nutritional and metabolic diseases complicating childbirth (principal); E03.9 Hypothyroidism, unspecified; O70.1 Second degree perineal laceration during delivery; Z3A.40 40 weeks gestation of pregnancy; O76 Abnormality in fetal heart rate and rhythm complicating labor and delivery; Z37.0 Single live birth
CPT/HCPCS: 36415; 85014; 85018; 85025; 86592; 86850; 86900; 86901; 87086; 87088; A9270; J2405; J2590; J2795; J7120

== ENCOUNTER 2022-09-27 07:32 | Emergency (ER) | payer BC, SELFPAY ==
--- NOTE | ~2022-09-27 | XR_ITS ---
EXAMINATION: XR shoulder LT min 2V DATE: 09/27/2022 08:13 INDICATION: Left shoulder crepitus, numbness and tingling TECHNIQUE: AP internally and externally rotated, AP oblique externally rotated and transscapular Y vi ews of the left shoulder were obtained. COMPARISON: None FINDINGS: Normal alignment. No fracture. Glenohumeral joint is normal. Acromioclavicular joint is normal. Soft tissues are unremarkable. Visualized portions of the lungs are clear. IMPRESSION: Negative left shoulder radiographs. Reviewed, dictated and finalized at location B.
[2022-09-27 07:33] VITALS: BP 117/77; PULSE 100; RESP 16; TEMP 36.1; O2SAT 100
[2022-09-27] MEDS: KETOROLAC (*BKC) 60 MG/2 ML VIAL IM (09:09)
--- NOTE | 2022-09-27 09:19 | ED.EXTPRO ---
HPI - Extremity Problem General Chief complaint: Extremity Problem,Nontraumatic Stated complaint: left should numbness Time Seen by Provider: 09/27/22 07:37 History of Present Illness HPI Narrative: Patient is a 32-year-old female who presents ER with some numbness to her left arm. Tingling going down the arm. Associate with pain behind her left shoulder. No known trauma but reports she been sleeping on it. She reports she has some clicking and popping that occurred in her shoulder chronically. No functional deficit at this time. No swelling to the arm or redness. 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 Related Data Home Medications Medication Instructions Recorded Confirmed [id number] 400 mcg-om3 35 mg-dha 25 1 tablet PO TID 03/07/21 10/19/21 mg-epa 5 mg-fish oil chewable tablet diphenhydramine HCl 25 mg capsule 25 mg PO HS PRN Allergy Symptoms 10/19/21 10/19/21 (Benadryl) Allergies Allergy/AdvReac Type Severity Reaction Status Date / Time No Known Allergies Allergy Verified 09/27/22 07:48 Review of Systems Constitutional: Constitutional: Denies chills and Denies fever(s) Cardiovascular: Cardiovascular: Reports no additional cardiovascular complaints Respiratory: Respiratory: Reports no additional respiratory complaints Musculoskeletal: Musculoskeletal: Reports back pain, Denies arthralgias and Denies joint swelling Neurologic: Denies focal weakness and Reports numbness (Tingling in the arm) PMFSH Past Medical History Medical History x1 Anxiety Bipolar disorder Hypothyroidism Surgical History Surgical History History of placement of ear tubes Family History Family History Father Depression Anxiety Mother Breast cancer Diagnosed at age 58 Anxiety Depression Sibling Alcoholism Anxiety Depression Grandparent Alcoholism Breast cancer Hypertension Cerebrovascular accident Grandparent Alcoholism Social History Social History Smoking status: Former smoker Tobacco type: cigarettes Smoking end date: 01/24/21 Alcohol intake: never Substance use: never Spiritual care concerns: No Exam Narrative: GENERAL: Well-appearing, well-nourished, and in no acute distress. HEAD: Normocephalic, atraumatic. CHEST: Clear to auscultation. No respiratory distress. HEART: Regular rate and rhythm. Normal peripheral pulses. EXTREMITIES: Focused exam of the left shoulder reveals normal range of motion with active and passive motion. No edema or discoloration of the arm. Normal internal/external rotation. Patient does have crepitus with movement of the left shoulder joint. Patient has significant tenderness over the rhomboid and trapezius musculature in the left back when compared to the right side. SKIN: Warm, dry, no rash. NEURO: Alert and oriented x3. PSYCH: Normal mood and affect. Course Course Emergency Course: Imaging unremarkable. Patient felt to have radicular symptoms related to muscle cramps and pain. Patient be started on anti-inflammatories as well as muscle relaxers. 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 Vital Signs Vital signs: Vital Signs Temperature 96.9 F L 09/27/22 07:33 Pulse Rate 100 09/27/22 07:33 Respiratory Rate 16 09/27/22 07:33 Blood Pressure 117/77 09/27/22 07:33 Pulse Oximetry 100 09/27/22 07:33 Oxygen Delivery Room Air 09/27/22 07:33 Temperature 96.9 F L 09/27/22 07:33 Pulse Rate 100 09/27/22 07:33 Respiratory Rate 16 09/27/22 07:33 Blood Pressure 117/77 09/27/22 07:33 Pulse Oximetry 100 09/27/22 07:33 Oxygen Delivery Room Air 09/27/22 07:33 MDM - Extremity (Nontraumatic) Imaging Da
== END 2022-09-27 09:40 | disposition home or self-care (01) ==
PROVIDERS: Emergency Provider Emergency Medicine
DX: M54.12 Radiculopathy, cervical region (principal); M62.838 Other muscle spasm; E03.9 Hypothyroidism, unspecified; Z87.891 Personal history of nicotine dependence
CPT/HCPCS: 73030; 96372; 99283; J1885

== ENCOUNTER 2024-01-28 15:01 | Outpatient (CLI) | payer OTHER, SELFPAY ==
--- NOTE | ~2024-01-28 | US_ITS ---
Ultrasound of the left axilla CLINICAL HISTORY: Palpable lump TECHNIQUE: Targeted sonographic imaging of the area of clinical concern was performed. FINDINGS: At the area of concern, there is a 6 x 6 x 2 mm hypoechoic ovoid wider than tall masslike s tructure, very superficially located, dyspnea the skin surface. No posterior shadowing. IMPRESSION: 6 x 6 x 2 mm hypoechoic mass just into the skin surface at the area of clinical concern. This is some what indeterminate, though possibly a small sebaceous cyst. Clinical follow-up advised. If the lesion progresses or fails to resolve, consider additional follow-up imaging. Reviewed, dictated and finalized at location M. IMPRESSION: 6 x 6 x 2 mm hypoechoic mass just into the skin surface at the area of clinical concern. This is somewhat indeterminate, though possibly a small sebaceous cys t. Clinical follow-up advised. If the lesion progresses or fails to resolve, co nsider additional follow-up imaging.
--- NOTE | ~2024-01-28 | US_ITS ---
EXAMINATION: US OB follow up DATE: 01/28/2024 16:07 INDICATION: Amenorrhea, unspecified. TECHNIQUE: Real-time ultrasound of the pelvis was performed. COMPARISON: None. FINDINGS: There is a single living fetus in breech presentation. The placenta is posterior, 1.9 cm from the ce rvix. heart rate is 150 beats per minute (bpm). The amniotic fluid index is subjectively normal . The deepest vertical pocket is 4.8 cm. The following biometric data were obtained: Barclay-rump length: 10.3 cm; Biparietal diameter (BPD): 3.2 cm; head circumference (HC): 12.4 cm; abdo thaddeus circumference (AC): 10.2 cm; femur length (FL): 1.9 cm. These measurements are concordant. Estimated weight is 142 g +/- 21 g, which correlates with the >97th percentile when 07/23/24 is used as estimated date of delivery. As single measurements, these parameters are each equal to the following estimated gestational ages: BPD: 16 weeks 0 days. HC: 16 weeks 2 days. AC: 16 weeks 1 days. FL: 15 weeks 5 days. estimated gestational age based solely on measurements from this exam is 16 weeks 0 days +/- 1 weeks 1 days. IMPRESSION: 1. Single living fetus in breech presentation. 2. Large for gestational age. Estimated weight is 142 g +/- 21 g, which correlates with the >9 7th percentile when 07/23/24 is used as estimated date of delivery. 3. Low-lying placenta. Reviewed, dictated and finalized at location A. IMPRESSION: 1. Single living fetus in breech presentation. 2. Large for gestational age. Estimated weight is 142 g +/- 21 g, which correlates with the >97th percentile when 07/23/24 is used as estimated date of delivery. 3. Low-lying placenta.
== END 2024-01-28 15:02 | disposition home or self-care (01) ==
LOC: ANHIMG 15:05
PROVIDERS: Visit Provider Nurse Practitioner Obstetrics & Gynecology
DX: O44.40 Low lying placenta NOS or without hemorrhage, unspecified trimester (principal); R22.32 Localized swelling, mass and lump, left upper limb; Z3A.00 Weeks of gestation of pregnancy not specified
CPT/HCPCS: 76816; 76882

== ENCOUNTER 2024-02-07 08:11 | Outpatient (CLI) | payer OTHER, SELFPAY ==
[2024-02-07 08:38] LABS: Basophils Percent Auto 0.6 % (0.2-1.2); Eosinophils Absolute Auto 0.1 K/mm3 (0-0.3); Eosinophils Percent Auto 1.8 % (0-4.4); Hematocrit 31.2 % (37.0-47.0); Hemoglobin 10.6 g/dL (12.0-15.0); Immature Granulocyte Absolute 0.03 K/mm3 (0.00-0.031); Immature Granulocyte Percent A 0.5 % (0-0.5); Lymphocytes Absolute Auto 1.79 K/mm3 (0.9-3.2); Mean Corpuscular Hemoglobin 32.5 pg (26-34); Mean Corpuscular Volume 95.7 fl (80-100); Monocytes Absolute Auto 0.4 K/mm3 (0.1-0.6); Monocytes Percent Auto 5.7 % (2.6-8.5); Neutrophils Absolute Auto 4.3 K/mm3 (1.3-6.7); Neutrophils Percent Auto 64.4 % (45.5-73.1); Platelet Count Result 255 k/mm3 (150-375); Red Blood Count 3.26 M/mm3 (4.2-5.4); Red Cell Distribution Width 13.6 % (11.5-14.5); White Blood Count 6.6 K/mm3 (4.5-10.0)
[2024-02-07 09:03] LABS: Add Urine Microscopic? YES; Appearance Urine Clear (Clear); Bacteria Urine None Seen /hpf; Bilirubin Urine Negative (Negative); Blood Urine Negative (Negative); Color Urine Yellow (Yellow); Glucose Urine UA Negative (Negative); Ketones Urine Negative (Negative); Leukocyte Esterase Ur 1+ LEU/UL (Negative); Need Manual Microscopic Reviewed; Nitrate Urine Negative (Negative); Non Pathogenic Casts 0-2; Protein Urine Negative (Negative); RBC Urine 0-2 /hpf (0-2); Specific Grav Ur 1.007 (1.001-1.035); Squamous Epithelial Cell Urine Occasional /hpf (Few); Urobilinogen Urine 0.2 mg/dL (<2.0); WBC Urine 0-5 /hpf (0-3); pH Urine 7.5 (5.0-9.0)
[2024-02-07 09:22] LABS: Thyroid Stimulating Hormone 0.776 uIU/mL (0.465-4.680)
[2024-02-07 09:31] LABS: HIV 1/2 Ab P24 Ag Result Negative (Negative)
[2024-02-07 09:57] LABS: Hepatitis B Surface Antigen Negative (Negative); Rubella IgG Antibody 36.6 IU/ML
[2024-02-07 10:11] LABS: Hepatitis C Virus Antibody Negative (Negative)
[2024-02-08 11:10] LABS: Rapid Plasma Reagin Non-Reactive (NonReactive)
[2024-02-09 10:18] LABS: Hematocrit 33.6 % (35.0-45.0); Hemoglobin 10.6 g/dL (11.7-15.5); MCH 31.5 pg (27.0-33.0); MCV 99.7 fL (80.0-100.0); RDW 13.5 % (11.0-15.0); Red Blood Cell Count 3.37 Million/uL (3.80-5.10)
[2024-02-10 15:03] LABS: Varicella IgG Antibody <1.00 S/CO
== END 2024-02-07 08:12 | disposition home or self-care (01) ==
LOC: ANHLAB 08:13
PROVIDERS: Visit Provider Obstetrics & Gynecology
DX: Z34.91 Encounter for supervision of normal pregnancy, unspecified, first trimester (principal); Z3A.00 Weeks of gestation of pregnancy not specified
CPT/HCPCS: 36415; 81001; 83021; 84443; 85025; 86592; 86703; 86762; 86787; 86803; 86850; 86900; 86901; 87086; 87340; G0432

== ENCOUNTER 2024-02-10 07:29 | Outpatient (CLI) | payer OTHER, SELFPAY ==
--- NOTE | ~2024-02-10 | US_ITS ---
EXAMINATION: US thyroid DATE: 02/10/2024 08:08 INDICATION: Nontoxic goiter, unspecified. TECHNIQUE: Multiple ultrasound images of the thyroid were obtained. COMPARISON: None. FINDINGS: The right thyroid lobe measures 4.4 x 1.3 x 1.4 cm. The left thyroid lobe measures 4.9 x 1.0 x 1.5 c m. In the left thyroid lobe, there is a 5 mm solid, hypoechoic, wider than tall nodule with smooth m argin without echogenic foci (TI-RADS TR4). IMPRESSION: 1. Small thyroid nodule, likely not clinically significant. No follow-up is needed. Reviewed, dictated and finalized at location A. IMPRESSION: 1. Small thyroid nodule, likely not clinically significant. No follow-up is nee ded.
== END 2024-02-10 07:30 | disposition home or self-care (01) ==
PROVIDERS: Visit Provider Obstetrics & Gynecology
DX: E04.1 Nontoxic single thyroid nodule (principal)
CPT/HCPCS: 76536

== ENCOUNTER 2024-04-03 09:01 | Outpatient (CLI) | payer OTHER, SELFPAY ==
[2024-04-03 10:24] LABS: Basophils Percent Auto 0.3 % (0.2-1.2); Eosinophils Absolute Auto 0.1 K/mm3 (0-0.3); Eosinophils Percent Auto 1.1 % (0-4.4); Hematocrit 29.7 % (37.0-47.0); Hemoglobin 9.8 g/dL (12.0-15.0); Immature Granulocyte Absolute 0.03 K/mm3 (0.00-0.031); Immature Granulocyte Percent A 0.5 % (0-0.5); Lymphocytes Absolute Auto 1.32 K/mm3 (0.9-3.2); Lymphocytes Percent Auto 21.5 % (18.3-44.2); Mean Corpuscular Hemoglobin 32.6 pg (26-34); Mean Corpuscular Volume 98.7 fl (80-100); Mean Platelet Volume 9.4 fl (7.4-10.4); Monocytes Absolute Auto 0.4 K/mm3 (0.1-0.6); Monocytes Percent Auto 5.9 % (2.6-8.5); Neutrophils Absolute Auto 4.3 K/mm3 (1.3-6.7); Neutrophils Percent Auto 70.7 % (45.5-73.1); Platelet Count Result 253 k/mm3 (150-375); Red Blood Count 3.01 M/mm3 (4.2-5.4); Red Cell Distribution Width 12.9 % (11.5-14.5); White Blood Count 6.1 K/mm3 (4.5-10.0)
[2024-04-03 10:36] LABS: Glucose 1 Hour PP 50gm Dose 120 mg/dL
[2024-04-03 11:49] LABS: Thyroid Stimulating Hormone Reflex 0.974 uIU/mL (0.465-4.68)
== END 2024-04-03 09:02 | disposition home or self-care (01) ==
LOC: ANHLAB 09:04
PROVIDERS: Visit Provider Obstetrics & Gynecology
DX: Z34.90 Encounter for supervision of normal pregnancy, unspecified, unspecified trimester (principal); Z3A.00 Weeks of gestation of pregnancy not specified
CPT/HCPCS: 36415; 82947; 84443; 85025

== ENCOUNTER 2024-05-29 10:47 | Outpatient (CLI) | payer OTHER, SELFPAY ==
[2024-05-29 11:52] LABS: Basophils Percent Auto 0.4 % (0.2-1.2); Eosinophils Absolute Auto 0.1 K/mm3 (0-0.3); Eosinophils Percent Auto 1.7 % (0-4.4); Hemoglobin 9.2 g/dL (12.0-15.0); Immature Granulocyte Absolute 0.05 K/mm3 (0.00-0.031); Immature Granulocyte Percent A 0.7 % (0-0.5); Lymphocytes Absolute Auto 1.57 K/mm3 (0.9-3.2); Lymphocytes Percent Auto 22.8 % (18.3-44.2); Mean Corpuscular HGB Conc 32.9 g/dl (32-36); Mean Corpuscular Hemoglobin 31.9 pg (26-34); Mean Corpuscular Volume 97.2 fl (80-100); Mean Platelet Volume 9.8 fl (7.4-10.4); Monocytes Absolute Auto 0.6 K/mm3 (0.1-0.6); Monocytes Percent Auto 8.6 % (2.6-8.5); Neutrophils Absolute Auto 4.5 K/mm3 (1.3-6.7); Neutrophils Percent Auto 65.8 % (45.5-73.1); Platelet Count Result 213 k/mm3 (150-375); Red Blood Count 2.88 M/mm3 (4.2-5.4); Red Cell Distribution Width 13.1 % (11.5-14.5); White Blood Count 6.9 K/mm3 (4.5-10.0)
[2024-05-29 12:41] LABS: Thyroid Stimulating Hormone 0.676 uIU/mL (0.465-4.680)
[2024-05-29 12:50] LABS: HIV 1/2 Ab P24 Ag Result Negative (Negative)
[2024-05-29 14:49] LABS: Rapid Plasma Reagin Non-Reactive (NonReactive)
== END 2024-05-29 10:48 | disposition home or self-care (01) ==
LOC: ANHLAB 10:49
PROVIDERS: Visit Provider Nurse Practitioner Obstetrics & Gynecology
DX: Z34.90 Encounter for supervision of normal pregnancy, unspecified, unspecified trimester (principal); Z3A.00 Weeks of gestation of pregnancy not specified
CPT/HCPCS: 36415; 84443; 85025; 86592; 86703; G0432

== ENCOUNTER 2024-07-12 08:30 | Outpatient (RCR) | payer OTHER, SELFPAY ==
[2024-06-22 09:59] VITALS: BP 109/71; PULSE 105
[2024-06-30 07:50] VITALS: BP 112/76; PULSE 115
[2024-07-05 09:09] VITALS: BP 108/79; PULSE 101
--- NOTE | ~2024-07-12 | US_ITS ---
EXAMINATION: US OB limited DATE: 07/12/2024 09:37 INDICATION: Assess amniotic fluid index TECHNIQUE: Real-time ultrasound of the pelvis was performed. The interpreting radiologist was not pre sent for the study. COMPARISON: None. FINDINGS: There is a single living fetus in vertex presentation. The placenta is left fundal. heart rate is 141 beats per minute (bpm). The amniotic fluid index is 11.1 cm, which is normal. IMPRESSION: 1. Single living fetus in vertex presentation with heart rate of 141 bpm. 2. Normal amniotic fluid index of 11.1 cm. Reviewed, dictated and finalized at location A. NTORY MANAGEMENT SPECIALIST IMPRESSION: 1. Single living fetus in vertex presentation with heart rate of 141 bpm . 2. Normal amniotic fluid index of 11.1 cm.
--- NOTE | ~2024-07-12 | US_ITS ---
EXAMINATION: US OB limited DATE: 07/05/2024 09:42 INDICATION: Large for gestational age. Advanced maternal age. Third trimester. TECHNIQUE: Real-time ultrasound of the pelvis was performed. COMPARISON: Ultrasound 06/30/2024 FINDINGS: There is a single fetus in vertex presentation. The placenta is fundal and posterior. heart ra te is 161 beats per minute (bpm). The amniotic fluid index is 12.2 cm cm, which is normal. IMPRESSION: 1. Single living fetus in vertex presentation. Reviewed, dictated and finalized at location A. ICAL TRIAL DATA MANAGER
--- NOTE | ~2024-07-12 | US_ITS ---
EXAMINATION: US OB BPP wo non-stress DATE: 06/22/2024 09:41 INDICATION: Tachycardia during third trimester . Assess biophysical profile and amniotic flu id index. TECHNIQUE: Real-time pelvic ultrasound was performed. The interpreting radiologist was not present fo r the study. COMPARISON: None. FINDINGS: There is a single living fetus in vertex presentation. The placenta is posterior. heart rate i s 162 beats per minute (bpm). Normal amniotic fluid index of 10.0 cm (5th%-95%: 7.7-24.9 cm at 36 wee ks estimated gestational age) Biophysical profile performed by the technologist: breathing (30 sec sustained breathing in 30 minutes): 2 out of 2 movement (3 gross body movements in 30 minutes): 2 out of 2 tone (one episode of sdejggu-gprruuivm-grgixdg limb movement): 2 out of 2 Amniotic fluid pocket (2 cm): 2 out of 2 Total score: 8 out of 8 IMPRESSION: 1. Single living fetus in vertex presentation with heart rate of 162 bpm. 2. Biophysical profile 8 out of 8. 3. Normal amniotic fluid index of 10.0 cm. Reviewed, dictated and finalized at location B. BLACKSMITH
--- NOTE | ~2024-07-12 | US_ITS ---
US OB limited 06/30/2024 07:52 Indication: Evaluate amniotic fluid Procedure: High-resolution Limited obstetrical ultrasound using transabdominal technique Comparison: Ultrasound dated 06/22/2024 Findings: There is a single living intrauterine in vertex presentation. heart rate 16 9 BPM. Amniotic fluid index is normal measuring 10.9 cm (normal range 7.5-24.4 cm). Impression: 1: Normal AYE measures 10.9 cm. Reviewed, dictated and finalized at location B. WIRE CHIEF Impression: 1: Normal AYE measures 10.9 cm.
[2024-07-12 09:36] VITALS: BP 112/86; PULSE 116
== END 2024-07-24 07:36 | disposition home or self-care (01) ==
LOC: ANHOBOP 08:30
PROVIDERS: Visit Provider Obstetrics & Gynecology
DX: O09.523 Supervision of elderly multigravida, third trimester (principal); O36.63X0 Maternal care for excessive fetal growth, third trimester, not applicable or unspecified; Z3A.36 36 weeks gestation of pregnancy
CPT/HCPCS: 59025; 76815; 76819

== ENCOUNTER 2024-07-14 06:34 | Inpatient (IN) | payer OTHER, SELFPAY ==
[2024-07-14] VITALS (26 sets, daily range): BP systolic 103–143; BP diastolic 41–102; PULSE 79–108; RESP 16–18; TEMP 36.3–36.7; O2SAT 97–98; BMI 31.8
--- OUTSIDE RECORDS SUMMARY | 2024-07-14 06:37 | XMS_ITS | Clinical Summary ---
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 Name Role Phone Unknown, Notinfile Primary Care Provider Unavail able Allergies No known active allergies Medications albuterol HFA (PROVENTIL HFA,VENTOLIN HFA,PROAIR HFA) 90 mcg/actuation inhalerIndicatio ns:Acute bronchitis, unspecified organism Inhale 2 puffs every 6 (six) hours as needed for wheezing or shortness of breath 18 g Active Active Problems No known active problems Immunizations Immunization Administration Dates Next Due Hep B, Unspecified 01/06/2013 Influenza, Quadrivalent, Spl it, Preservative Free, Intramuscular 04/14/2021 MMR 01/08/2020 Tdap 08/17/2021,01/10/2020 Social History Tobacco Use Types Packs/Day Years Used Date Smoking Tobacco: Never Assessed Personal Safety Answer Date Recorded Getting School Help Needed Not on file 11/24 Comments Unknown Sex and Gender Information Value Date Recorded Sex Assigned at Not on file 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 Gender Identity Not on file Sexual Orientation Not on file Last Filed Vital Signs Vital Sign Reading Time Taken Comments Blood Pressure 115/76 11/26/2023 9:55 AM CDT Pulse 97 11/26/2023 9:55 AM CDT Temperature 36.9 C (98.4 F) 11/26/2023 9:55 AM CDT Respiratory Rate 20 11/26/2023 9:55 AM CDT Oxygen Saturation 100% 11/26/2023 9:55 AM CDT Inhaled Oxygen Concentration - - Weight 59 kg (130 lb) 11/26/2023 9:55 AM CDT Height 165.1 cm (5' 5 ) 11/26/2023 9:55 AM CDT Body Mass Index 21.63 11/26/2023 9:55 AM CDT Plan of Treatment Health Maintenance Due Date Last Done Comments Cervical Cancer Screening 1989 Depression Screening 1989 Hepatitis C Screening 1989 Varicella Vaccines (1 of 2 - 13+ 2-dose series) 2002 Regular Well Visit/Exam 18-64 2007 Covid-19 Vaccine (2023-2 5 season) 2024 06/01/2021, 10/28/2020, 10/07/2020 Influenza Vaccine (#1) 2024 04/14/2021 DTaP/Tdap/Td Vaccine (3 - Td or Tdap) 08/18/2031 08/17/2021, 01/10/2020 Hepatitis B Screening Completed 01/06/2013 HPV Vaccines Aged Out No longer eligi ble based on patient's age to complete this topic Pneumococcal vaccine <65 Aged Out No longer eligible based on patient's age to complete this topic Insurance [facility] [place] [place] [id number] Care Teams Wool Washing Machine Operator Relationship Specialty Start Date End Date Unknown, Notinfile PCP - General 11/26/23
--- OUTSIDE RECORDS SUMMARY | 2024-07-14 06:37 | XMS_ITS | Clinical Summary ---
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 Gender Identity Not on file Sexual Orientation Not on file Plan of Treatment Health Maintenance Due Date Last Done Comments Hepatitis C Virus (HCV) Screening 1989 Pap Smear 2010 Hepatitis B Immunization (2 of 3 - 19+ 3-dose series) 02/03/2013 01/06/2013 Cervical Cancer Screening (CCS) 2019 HPV/Cotest 2019 Influenza Immunization (#1) 2024 04/14/2021 SARS-COV-2 Immunization ( season) 2024 10/28/2020, 10/07/2020 Respiratory Syncytial Virus (RSV) Immunization (Adult) (1 - 1-dose 75+ series) 2064 DTaP/Tdap/Td Immunization Discontinued 01/10/2020 TdaP Immunization Completed 01/10/2020 Meningococcal Immunization (ACWY) Aged Out No longer eligible based on patient's age to complete this topic Pneumococcal Immunization Combined Aged Out No longer eligible based on patient's age to complete this topic Rotavirus Immunization Aged Out No lo nger eligible based on patient's age to complete this topic
--- OUTSIDE RECORDS SUMMARY | 2024-07-14 06:37 | XMS_ITS | Clinical Summary ---
Author Organization [facility] Address [address] [place] [address] Care Team Providers Care Registered Associate Name Role Phone Unavailable Primary Care Provider Unavailabl e Source Comments [facility],non-owned Affiliates and Associated Physician Practices is amultiple site organization consisting of ambulatory clinics and hospital sitesin [place], [place], [place] and [place]. This disclosure is being madepursuant to the Care Everywhere program and may not contain all information available regarding this patient. Last updated 18.[facility] Social History Tobacco Use Types Packs/Day Years Used Date Smoking Tobacco: Never Assessed Sex and Gender Information Value Date Recorded Sex Assigned at Not on file Gender Identity Not on file Sexual Orientation Not on file Plan of Treatment Health Maintenance Due Date Last Done Comments PAP SMEAR 1989 HIV SCREENING 2004 HEPATITIS C SCREENING 03/10/2007 DTAP/TDAP/TD VACCINES (1 - Tdap) 2008 HEPATITIS B VACCINE (1 of 3 - 19+ 3-dose series) 2008 COVID-19 VACCINE ( - 2023-2 5 season) 2024 INFLUENZA VACCINE (#1) 2024 DEPRESSION SCREENING 05/26/2024 ZOSTER VACCINE (1 of 2) 2039 HIB VACCINE Aged Out No longer eligi ble based on patient's age to complete this topic HPV VACCINE Aged Out No longer eligi ble based on patient's age to complete this topic MENINGOCOCCAL (Group B) VACCINE Aged Out No longer eligible based on patient's age to complete this topic MENINGOCOCCAL VACCINE Aged Out No new edelmira eligible based on patient's age to complete this topic PNEUMOCOCCAL VACCINE Aged Out No long er eligible based on patient's age to complete this topic
--- OUTSIDE RECORDS SUMMARY | 2024-07-14 06:37 | XMS_ITS | Clinical Summary ---
Author Organization [facility] Address [address] [place] [address] Phone Care Team Providers Care Accounts Manager Name Role Phone Unavailable Primary Care Provider Unavailabl e Encounters Date Type Department Care Team Description 06/22/2024 External Device Data STL ABSTRACTION Provider, Abstract 06/16/2024 External Device Data STL ABSTRACTION Provider, Abstract 06/16/2024 External Device Data STL ABSTRACTION Provider, Abstract 06/09/2024 External Device Data STL ABSTRACTION Provider, Abstract 06/01/2024 8:59 AM WIPER BLENDER - 06/01/2024 11:59 PM WIPER BLENDER Hospital Encounter [facility] [address] [place] [address] Faizan Wilkins MD Discharge Disposition: Home or Self Care from Last 3 Months Social History Tobacco Use Types Packs/Day Years Used Date Smoking Tobacco: Never Assessed Comments Unknown Sex and Gender Information Value Date Recorded Sex Assigned at Not on file Legal Sex Female 7:05 AM CDT Gender Identity Not on file Sexual Orientation Not on file Plan of Treatment Health Maintenance Due Date Last Done Comments HEPATITIS B VACCINES (2 of 3 - 19+ 3-dose series) 02/03/2013 01/06/2013 CERVICAL CANCER SCREENING 2019 INFLUENZA VACCINE (#1) 2023 04/14/2021 DTAP/TDAP/TD VACCINES (3 - Td or Tdap) 08/18/2031 08/17/2021, 01/10/2020 HPV VACCINES Aged Out No longer eligi ble based on patient's age to complete this topic Procedures Procedure Name Priority Date/Time Associated Diagnosis Comments US OB FOLLOW UP PER FETUS Routine 06/01/2024 9:22 AM WIPER BLENDER Advanced maternal age in multigravida, second trimester Encounter for ultrasound to assess growth from Last 3 Months Results * US OB FOLLOW UP PER FETUS (06/01/2024 9:22 AM WIPER BLENDER) Anatomical Region Laterality Modality Pelvis Ultrasound 06/01/2024 9:01 AM WIPER BLENDER Narrative 06/01/2024 9:25 AM WIPER BLENDER STL FOLLOW UP ----- Pat. Name: JINGESH CERNA Study Date: 06/01/2024 9:01am Pat. NO: [id number] Referring MD: FAIZAN WILKINS MD Site: [facility] Therapist Phys: Flora Best RDMS : 1990 Age: 34 ----- INDICATION ----- Anatomy Survey Advanced Maternal Age (AMA), Multigravida Anxiety, Maternal CODING ----- Diagnoses Z3A.32: Weeks of gestation O99.343: Other mental disorders complicating O09.523: Supervision of elderly multigravida Z36.3: Encounter for screening for malformations Procedures 19434: Ultrasound, uterus, real time with image documentation, follow up, transabdominal approach per fetus HISTORY ----- OB History 3. Para 1 T1A1L1 METHOD ----- Transabdominal ultrasound examination ----- Olivas . Number of fetuses: 1 DATING ----- GA by prior assessment 32 w + 4 d AISLINN by prior assessment: 07/23/2024 Ultrasound examination on: 06/01/2024 GA by U/S based upon: AC, BPD, EFW, Femur, HC GA by U/S 34 w + 3 d AISLINN by U/S: 07/10/2024 Method of dating: Restore dating from previous exam Assigned: based on stated AISLINN, selected on 03/18/2024 Assigned GA 32 w + 4 d Assigned AISLINN: 07/23/2024 BIOMETRY ----- BPD 85.6 mm 34w 4d 91% Hadlock OFD 108.5 mm 35w 6d 98% Sylvia HC 309.1 mm 34w 4d 65% Hadlock AC 300.6 mm 34w 0d 87% Hadlock Femur 68.0 mm 35w 0d 91% Hadlock HC / AC 1.03 34% Nicolaides Weight Calculation: EFW 2,416 g 34w 1d 89% Hadlock EFW (lb,oz) 5 lb 5 oz EFW by Hadlock ([id number]) Head / Face / Neck Biometry: Flight Tower Dispatcher 4.8 mm Extremities / Bony Struc Biometry: FL / BPD 0.79 FL / HC 0.22 FL / AC 0.23 GENERAL EVALUATION ----- Cardiac activity present. FHR 140 bpm. movements: present. Presentation: cephalic Placenta: Placental site: posterior Umbilical cord: Insertion site: placental insertion: normal Amniotic fluid: Amount of AF: normal amount. MVP 6.1 cm. AYE 13.7 cm. Q1 2.8 cm, Q2 6.1 cm, Q3 1.7 cm, Q4 3.1 cm ANATOMY ----- The following structures appear normal: Head / Neck Cranium. Lateral ventricles. Cavum septi pellucidi. Heart / Thorax RVOT view. LVOT view. Diaphragm. Abdomen Stomach. Kidneys. Bladder. GROWTH OVERVIEW ----- Exam date GA BPD (mm) HC (mm) AC (mm) FL (mm) HL (mm) EFW (g) 03/18/2024 21w 6d 54.8 78% 205.8 73% 178.2 70% 39.2 66% 37.5 87% 523 82% 06/01/2024 32w 4d 85.6 91% 309.1 65% 300.6 87% 68.0 91% 2,416 89% COMMENT ----- Patient's name and date of were verified by the radiology rn prior to the exam IMPRESSION ----- Viable at 32 weeks gestation complicated by advanced maternal age. Cephalic presentation Normal growth Estimated weight is at the 89th percentile with abdominal circumference at the 97th percentile No structural malformations identified Posterior placenta with normal placental cord insertion appreciated; placenta is ot low-lying Follow-up as clinically indicated Procedure Note Mikel Kent MD - 06/01/2024 STL FOLLOW UP ----- Pat. Name:Rick CERNA Date:06/01/2024 9:01am Pat. NO: [id number] MD:FAIZAN WILKINS [facility]Flora Best RDMS :1990Age:34 ----- INDICATION ----- Anatomy Survey Advanced Maternal Age (AMA), Multigravida Anxiety, Maternal CODING ----- Diagnoses Z3A.32: Weeks of gestation O99.343: Other mental disorders complicatingpregnancy O09.523: Supervision of elderly multigravida Z36.3: Encounter for screening formalformations Procedures 58193: Ultrasound, uterus, real time withimage documentation, follow up, transabdominal approach per fetus HISTORY ----- OB History 3. Para 1 T1A1L1 METHOD ----- Transabdominal ultrasound examination ----- Olivas . Number of fetuses: 1 DATING ----- GA by prior [id number] w + 4 d AISLINN by prior assessment:07/23/2024 Ultrasound examination on:06/01/2024 GA by U/S based upon:AC, BPD, EFW, Femur, HC GA by U/S34 w + 3 d AISLINN by U/S:07/10/2024 Method of dating:Restore dating from previous exam Assigned:based on stated AISLINN, selected on 03/18/2024 Assigned GA32 w + 4 d Assigned AISLINN:07/23/2024 BIOMETRY ----- BPD 85.6 mm 34w 4d 91%Hadlock OFD 108.5 mm 35w 6d 98%Sylvia HC 309.1 mm 34w 4d 65%Hadlock AC 300.6 mm 34w 0d 87%Hadlock Femur 68.0 mm 35w 0d 91%Hadlock HC / AC 1.03 34%Nicolaides Weight Calculation: EFW 2,416 g 34w 1d89% Hadlock EFW (lb,oz) 5 lb 5 oz EFW by Hadlock ([id number]) Head / Face / Neck Biometry: Flight Tower Dispatcher 4.8mm Extremities / Bony Struc Biometry: FL / BPD 0.79 FL / HC 0.22 FL / AC 0.23 GENERAL EVALUATION ----- Cardiac activity present. FHR 140 bpm. movements: present.Presentation: cephalic Placenta: Placental site: posterior Umbilical cord: Insertion site: placental insertion: normal Amniotic fluid: Amount of AF: normal amount. MVP 6.1 cm. AYE 13.7 cm. Q12.8 cm, Q2 6.1 cm, Q3 1.7 cm, Q4 3.1 cm ANATOMY ----- The following structures appear normal: Head / Neck Cranium. Lateral ventricles. Cavum septipellucidi. Heart / Thorax RVOT view. LVOT view. Diaphragm. Abdomen Stomach. Kidneys. Bladder. GROWTH OVERVIEW ----- Exam date GA BPD (mm) HC (mm) AC (mm) FL(mm) HL (mm) EFW (g) 03/18/2024 21w 6d 54.8 78% 205.8 73% 178.2 70%39.2 66% 37.5 87% 523 82% 06/01/2024 32w 4d 85.6 91% 309.1 65% 300.6 87%68.0 91% 2,416 89% COMMENT ----- Patient's name and date of were verified by the radiology rn prior tothe exam IMPRESSION ----- Viable at 32 weeks gestation complicated by advanced maternalage. Cephalic presentation Normal growth Estimated weight is at the 89th percentile with abdominalcircumference at the 97th percentile No structural malformations identified Posterior placenta with normal placental cord insertion appreciated;placenta is ot low-lying Follow-up as clinically indicated us Faizan Wilkins MD US ORDERABLES Final Result from Last 3 Months Insurance OPEN ACCESS O
--- OUTSIDE RECORDS SUMMARY | 2024-07-14 06:37 | XMS_ITS | Referral Summary ---
Author Organization [facility] [address] [place] Address [address] [place] [id number] Care Team Providers Care Stitcher Tape Controlled Machine Name Role Phone Unknown, Notinfile Primary Care [...] on file Legal Sex Female 8:45 PM PANTOGRAPH WATCHER Gender Identity Not on file Sexual Orientation [...] 11/26/2023 9:55 AM CDT Plan of Treatment Not on file Insurance [facility] Care Teams Stitcher Tape Controlled Machine Relationship Specialty Start Date End Date Unknown, Notinfile PCP - General 11/26/23
--- OUTSIDE RECORDS SUMMARY | 2024-07-14 06:37 | XMS_ITS | Patient Health Summary ---
Author Organization [facility] Address [address] [place] [address] Care Team Providers Care Insurance Sales Representative Name Role Phone Unavailable Primary Care Provider Unavailabl e Note from [facility],non-owned Affiliates and Associated Physician Practices is amultiple site organization consisting of ambulatory clinics and hospital sitesin [place], [place], [place] and [place]. This disclosure is being madepursuant to the Care Everywhere program and may not contain all information available regarding this patient. Last updated 18.[facility] [employer] Social History Tobacco Use Types Packs/Day Years Used Date Smoking Tobacco: Never Assessed Sex and Gender Information Value Date Recorded Sex Assigned at Not on file Gender Identity Not on file Sexual Orientation Not on file
--- OUTSIDE RECORDS SUMMARY | 2024-07-14 06:37 | XMS_ITS | Referral Summary ---
Author Organization [facility] Address [address] [place] [address] Care Team Providers Care Metal Sprayer Name Role Phone Unavailable Primary Care Provider Unavailabl e Source Comments [facility],non-owned Affiliates and Associated Physician Practices is amultiple site organization consisting of ambulatory clinics and hospital sitesin [place], [place], [place] and [place]. This disclosure is being madepursuant to the Care Everywhere program and may not contain all information available regarding this patient. Last updated 18.[facility] [employer] Social History Tobacco Use Types Packs/Day Years Used Date Smoking Tobacco: Never Assessed Sex and Gender Information Value Date Recorded Sex Assigned at Not on file Gender Identity Not on file Sexual Orientation Not on file Plan of Treatment Not on file
--- NOTE | 2024-07-14 07:03 | LDADM ---
This patient, Jignesh Cerna, was admitted to Labor/Delivery/Recovery 106 on 07/14/24 at 06:34. Plans for labor, pain management and were discussed with patient. Patient/family oriented to hospital policies and general routines including ID bracelet, bed and alarms, visiting hours, pain management, procedures, bathroom and other care routines, personal items, smoking policy, room service/diet and guest tray routines, security routines, and visiting hours. Patient/Family are encouraged to report perceived risks to care and to ask questions if they do not understand what they are told or what they should do. See OBIX for further documentation.
[2024-07-14 07:06] LABS: Basophils Percent Auto 0.3 % (0.2-1.2); Eosinophils Absolute Auto 0.1 K/mm3 (0-0.3); Eosinophils Percent Auto 2.4 % (0-4.4); Hematocrit 31.5 % (37.0-47.0); Hemoglobin 10.5 g/dL (12.0-15.0); Immature Granulocyte Absolute 0.03 K/mm3 (0.00-0.031); Immature Granulocyte Percent A 0.5 % (0-0.5); Lymphocytes Absolute Auto 1.66 K/mm3 (0.9-3.2); Lymphocytes Percent Auto 28.6 % (18.3-44.2); Mean Corpuscular HGB Conc 33.3 g/dl (32-36); Mean Corpuscular Hemoglobin 32.6 pg (26-34); Mean Corpuscular Volume 97.8 fl (80-100); Mean Platelet Volume 11.3 fl (7.4-10.4); Monocytes Absolute Auto 0.3 K/mm3 (0.1-0.6); Monocytes Percent Auto 4.5 % (2.6-8.5); Neutrophils Absolute Auto 3.7 K/mm3 (1.3-6.7); Neutrophils Percent Auto 63.7 % (45.5-73.1); Platelet Count Result 157 k/mm3 (150-375); Red Blood Count 3.22 M/mm3 (4.2-5.4); Red Cell Distribution Width 13.5 % (11.5-14.5); White Blood Count 5.8 K/mm3 (4.5-10.0)
[2024-07-14] MEDS: LACTATED RINGERS 1,000 ML 125 ML IV CONT ×2 (07:31→10:16)
[2024-07-14] MEDS: OXYTOCIN 30 UNITS/NS 500 ML 30 UNITS/500 ML BAG IV CONT (07:33)
[2024-07-14 07:46] LABS: Syphilis IgG/IgM Antibody Negative (Negative)
[2024-07-14 07:55] LABS: HIV 1/2 Ab P24 Ag Result Negative (Negative)
[2024-07-14] MEDS: fentaNYL CITRATE INJ (*CRX) 100 MCG/2 ML VIAL 50 MCG IV PUSH ×2 (10:20→10:40)
[2024-07-14] MEDS: METHYLERGONOVINE MALEATE 0.2 MG/ML VIAL IM (11:00)
[2024-07-14] MEDS: OXYTOCIN 30 UNITS/NS 500 ML 30 UNITS/500 ML BAG 125 UNITS IV CONT (11:05)
[2024-07-14] MEDS: IBUPROFEN 600 MG TABLET PO (12:49)
[2024-07-14] MEDS: WITCH HAZEL 40 PADS 1 PAD TOPICAL (13:27)
[2024-07-14] MEDS: BENZOCAINE 20% AER SPR (*SP) 56 GM CAN 1 SPRAY TOPICAL (13:27)
[2024-07-14] MEDS: ACETAMINOPHEN 325 MG TABLET 650 MG PO ×2 (14:01→19:25)
--- NOTE | 2024-07-14 14:07 | PM.OBPRVD ---
OB - Vaginal Delivery Note Procedure Delivery date: 07/15/24 Induction method: Per Pitocin Protocol Delivery augmentation: Rupture of Membranes Delivery monitor: External FHT Route of delivery: Episiotomy description: Midline Delivery repair: vicryl Specimen: No Quantitative Blood Loss (ml): 300 Anesthesia type: Local Disposition: Floor Complications: No immediate complications Narrative: She was admitted for induction of labor. Pitocin started. She had AROM light meconium. She progressed to active labor and rapidly to complete. Small midline episiotomy performed. She delivered a female infant with right compound hand presentation. Nose and mouth suctioned at perineum. With gently traction the anterior shoulder and trunk and extremities delivered. Infant was vigourously crying and placed on maternal abdomen. Peds present at delivery. Delayed cord clamping for one minute. Cord doubly clamped and cut. Pitocin started placenta delivered, intact. Patient had intermittent hypotonia. Clot was cleared from lower uterine segment. Bladder drained and yellow urine. She was given 0.2mg Methergine for intermittent hypotonia. This did improve uterine tone. Episiotomy was repaired with 3.0 vicryl. Baby Date of : 07/14/24 Time of : 10:32 Gestational Age by Date: 39 Infant gender: Female Weight (pounds): 8 Weight (ounces): 8 presentation: vertex position: Left Occiput Anterior ( compound right hand presentation) Placenta delivery description: Spontaneous Cord Vessel Description: 3 Vessels, Clamped/Cut and Delayed Cord Clamping score one minute: 8 score five minutes: 9
--- NOTE | 2024-07-14 14:09 | PM.IMHP ---
H&P: HPI History of Present Illness Date/Time: 07/14/24 14:09 Chief Complaint: induction of labor Narrative: patient is a 34-year-old at 39 weeks with an EDC of 07/18/2024 consistent with 1st trimester ultrasound. She presents for induction of labor elective. course significant for advanced maternal age and also borderline LGA with 89 percentile EFW. Been getting surveillance testing which has been normal. She has been informed of risks benefits induction of labor with favorable cervix versus spontaneous labor and she has opted for induction of labor. Review of Systems Review of Systems: All systems reviewed & are unremarkable except as noted in HPI and below Constitutional: Constitutional: Reports no additional constitutional complaints and Denies headache(s) Eyes: Eyes: Denies spots in vision ENT: Reports system reviewed and no additional complaints, except as documented and Denies headache(s) Cardiovascular: Cardiovascular: Denies chest pain and Denies dyspnea Respiratory: Respiratory: Denies dyspnea Gastrointestinal: Gastrointestinal: Reports no additional gastrointestinal complaints Genitourinary: Genitourinary: Reports amenorrhea Musculoskeletal: Musculoskeletal: Reports no additional musculoskeletal complaints Integumentary/Breasts: Skin/Breast: Denies breast mass and Denies rash Neurologic: Denies headache(s) Psychiatric: Psychiatric: Reports no additional psychiatric complaints PMFSH Past Medical History Medical History Bipolar disorder Hypothyroidism Anxiety x1 Surgical History Surgical History History of placement of ear tubes Family History Family History Father Depression Anxiety Mother Breast cancer Diagnosed at age 58 Anxiety Depression Sibling Alcoholism Anxiety Depression Grandparent Alcoholism Breast cancer Hypertension Cerebrovascular accident Grandparent Alcoholism Social History Social History Smoking status: Former smoker Tobacco type: cigarettes Second hand tobacco smoke exposure: No Smoking end date: 02/13/21 Alcohol intake: never Substance use: never Substance use type: does not use Do You Feel Safe in your Home?: Yes Lack of Transportation: No Lack of Food: Never True Current Housing: I Have Housing Concerned About Future Housing: No Difficulty Paying Gas/Electric Bills: No Difficulty Paying for Meds: No Currently Unemployed: No Education: Bachelor's Degree Difficulty w/ Childcare or Family Care: No Spiritual care concerns: No Meds Home Medications and Allergies Home Medications ?Medication ?Instructions ?Recorded ?Confirmed ?Type diphenhydramine HCl 25 mg capsule 25 mg PO HS PRN Allergy Symptoms 10/19/21 07/13/24 History (Benadryl) vitamin#30 30 mg iron-10 1 cap PO DAILY 01/01/24 07/14/24 History mg iron-folic acid 1 mg-omg3 capsule aspirin 81 mg tablet,delayed 81 mg PO DAILY 03/05/24 07/14/24 History release Allergies Allergy/AdvReac Type Severity Reaction Status Date / Time No Known Allergies Allergy Verified 07/14/24 07:04 Vital Signs Vital Signs - 24 hr 07/14/24 07:00 07/14/24 07:18 07/14/24 07:30 Temperature Pulse Rate 102 H 103 H Blood Pressure 111/77 117/84 Oxygen Delivery Room Air 07/14/24 07:37 07/14/24 07:45 07/14/24 08:00 Temperature 97.9 F Pulse Rate 96 103 H Blood Pressure 119/84 110/76 Oxygen Delivery 07/14/24 08:15 07/14/24 08:30 07/14/24 09:00 Temperature Pulse Rate 101 H 94 93 Blood Pressure 118/89 105/73 121/87 Oxygen Delivery 07/14/24 09:15 07/14/24 09:19 07/14/24 09:30 Temperature 98.1 F Pulse Rate 96 96 Blood Pressure 127/83 122/86 Oxygen Delivery 07/14/24 09:45 07/14/24 10:00 07/14/24 10:15 Temperature Pulse Rate 97 100 104 H Blood Pressure 125/88 143/97 H 135/102 H Oxygen Delivery 07/14/24 10:22 07/14/24 10:58 07/14/24 11:00 Temperature Pulse Rate 85 95 87 Blood Pressure 143/92 H 113/90 116/76 Oxygen Delivery 07/14/24 11:30 07/14/24 11:45 07/14/24 12:00 Temperature Pulse Rate 84 85 83 Blood Pressure 127/85 125/79 125/89 Oxygen Delivery 07/14/24 12:15 07/14/24 12:30 07/14/24 12:45 Temperature Pulse Rate 79 81 86 Blood Pressure 119/41 L 121/81 114/84 Oxygen Delivery 07/14/24 13:00 Temperature Pulse Rate 85 Blood Pressure 111/77 Oxygen Delivery Exam Const: General: no acute distress Eyes: General: appearance normal, both eyes and all related structures Resp: Effort & Inspection: normal respiratory effort Cardio: Rate: regular rate GI: Other: Gravid no fundal tenderness no right upper quadrant pain Skin: General skin exam: no rashes or lesions noted Neuro: Cognition (Neuro): normal cognition Extrem: General: normal to inspection Psych: Mental Status: mental status grossly normal H&P: Results Labs Labs: Short CBC 07/14/24 Range/Units 06:47 WBC 5.8 (4.5-10.0) K/mm3 Hgb 10.5 L (12.0-15.0) g/dL Hct 31.5 L (37.0-47.0) % Plt Count 157 (150-375) k/mm3 Assessment and Plan Assessment and plan (1) Elective induction of labor planned: Status: Acute Assessment and Plan: 1. Admit 2. Pitocin induction of labor.
[2024-07-15] MEDS: IBUPROFEN 600 MG TABLET PO ×2 (00:30→07:15)
[2024-07-15 05:45] VITALS: BP 99/68; PULSE 91; RESP 18; TEMP 36.1; O2SAT 98
[2024-07-15 05:47] LABS: Hematocrit 25.1 % (37.0-47.0); Hemoglobin 8.3 g/dL (12.0-15.0)
[2024-07-15] MEDS: DOCUSATE SODIUM 100 MG CAPSULE PO (07:15)
[2024-07-15] MEDS: MULTIVIT/MIN/PREN/FOL AC/IRON TABLET 1 TAB PO (07:15)
[2024-07-15] MEDS: POLYSACCHARIDE IRON COMPLEX 150 MG CAPSULE PO (07:15)
[2024-07-15 07:30] VITALS: BP 102/68; PULSE 88; RESP 16; TEMP 36.5; O2SAT 99
--- NOTE | 2024-07-15 11:41 | PC.NURSE ---
Consulted with mother concerning needs and she shared her ability to independently latch infant optimally without pain. Mother is feeding appropriately for growth of and understands stimulating to eat if needed. Infant has had appropriate feedings in the last 24 hours meets the outcomes for weight, output, blood sugar and jaundice at this time. Reinforced understanding of milk production, transition of milk, signs of adequate intake, transition of stool, prevention/relief of engorgement, plugged ducts, mastitis, responsive watching for feeding cues, the different methods of stimulating to breastfeed 1-3 hours after the start of the last feeding, community resources, and when to call a provider using the resource of the feeding sheet along with the mom and baby guide. Mother voiced understanding of the information shared, is confident to continue effectively her infant at home, when to call for assistance, denies any additional assistance or education at this time. Reported to the Primary RN.
[2024-07-15] MEDS: ACETAMINOPHEN 325 MG TABLET 650 MG PO (11:46)
[2024-07-16 09:19] VITALS: BP 120/74; PULSE 92; RESP 18; TEMP 36.7; O2SAT 100
--- NOTE | 2024-07-19 13:34 | PM.OBDSVD ---
DS: Admitting Diagnosis Discharge Date 07/15/24 Admitting Diagnosis induction of labor DS: Discharge Diagnosis Discharge Diagnosis (1) Normal spontaneous vaginal delivery: Code(s): O80 - Encounter for full-term uncomplicated delivery Status: Acute OB - DS: Summary Hospital Course Hospital Course: she was admitted for induction of labor. She had an uncomplicated vaginal delivery. On day 1 she doing well and nursing well. Lochia was decreasing she was ambulating well she requested discharge home on day 1. OB Procedures : NST and Ultrasound OB Procedures Intrapartum: Spontaneous Vag Delivery OB Procedures: : None Peripartum Data Infant Delivery Method: Natural Vaginal Episiotomy description: Midline complications: none Status at Discharge Functional status at discharge: independent ambulation Time Spent with Patient Time attestation: Total time spent providing and/or coordinating discharge services: Exam Const: General: cooperative Orientation/consciousness: oriented to person, oriented to place and oriented to time HENMT: Face/Nose/Sinus: Normal external nose present Eyes: General: appearance normal, both eyes and all related structures Resp: Effort & Inspection: normal respiratory effort GI: Inspection: normal to inspection Skin: General skin exam: normal color Neuro: General: oriented to person, oriented to place and oriented to time Extrem: General: normal to inspection and no calf tenderness Psych: Appearance: grossly normal Mental Status: mental status grossly normal Discharge Plan Discharge Attending physician on discharge: Faizan Thompson Discharging Clinician: Faizan Thompson Anticipated Discharge Date/Time: 07/15/24 12:16 Patient Disposition: Home, Self-Care Activity: may shower, no straining and pelvic rest Diet: regular Discharge Instructions: Education: Mom and Baby Guide Given to: Mother Follow-Up: Call your delivering provider's office for an appointment to be seen in: call and make an appointment Mom and baby should come to the [facility] for the follow-up appointment. Appointment Date/Time: July 16, 2024 at 9:00 am What to expect at your follow-up visit: Blood Pressure Check Physical Assessment Call [phone] if you are unable to keep your appointment time. BREAST CARE: * Wear a snug supportive bra. * For engorgement discomfort: Breast Feeding: * Apply warm moist washcloths * Express milk as needed to relieve engorgement * Wear loose clothing Bottle Feeding: * May apply ice packs * For sore nipples: * Identify correct latch-on * Apply warm moist washcloths before and after nursing * Air dry nipples after nursing * May apply Lansinoh cream to nipples EPISIOTOMY/PERINEAL CARE: * Until bleeding stops, use your thor bottle after urinating * Change your pad frequently throughout the day * You may take sitz baths several times a day (fill your bathtub with warm water and soak for 20 minutes.) Do NOT bathe in the water * No tub baths until seen by your physician - You may shower ACTIVITY: * Rest as much as possible. * Do not exercise or lift anything heavier than your baby (such as laundry or other children.) * Avoid stairs or driving as much as possible. * Do not put anything into the vagina. No douching, tampons, or sexual activity until seen by physician. NOTIFY PHYSICIAN IF YOU HAVE ANY QUESTIONS OR IF ANY OF THE FOLLOWING SYMPTOMS OCCUR: * If your episiotomy or incision becomes red, swollen, or more painful than what you have experienced in the hospital. * If your vaginal bleeding becomes foul smelling. * If your vaginal bleeding becomes more heavy than a period or if your bleeding changes from pink to bright red. However, you may pass an occasional walnut-sized clot once or twice for the first week . * If you experience a sharp, shooting pain in you calves. * If you discover a hard, reddened area on your breast or if you experience flu-like symptoms. DIET: * Eat regular, well-balanced meals. * Drink plenty of fluids daily. If , drink to thirst. Patient Instructions: Antibiotic Form Patient Language: Central African Stand Alone Forms: General Discharge Information Follow-up/Referrals: Faizan Thompson MD [Physician] - Call for Appointment (Follow up in 2-3 weeks) Discharge Medications: New polysaccharide iron complex 150 mg iron Capsule 150 mg PO DAILY Qty: 30 0RF Continued PNV #[id number] 30 mg iron-10 mg iron-1 mg capsule 1 cap PO DAILY Discontinued aspirin 81 mg tablet,delayed release (DR/EC) 81 mg PO DAILY Patient Comments: . diphenhydramine HCl [Benadryl] 25 mg Capsule 25 mg PO HS PRN (Reason: Allergy Symptoms) Patient Comments: allergies Date of admission: 07/14/24 06:34 Primary Care Provider: PHYSICIAN,METAL ANNEALER Admitting Provider: Faizan Thompson Attending physician on admission: Faizan Thompson Condition: Stable
== END 2024-07-15 12:57 | disposition home or self-care (01) | DRG 807 ==
LOC: ANHLDR 06:35 → ANHOB2 13:51
PROVIDERS: Admitting Provider Obstetrics & Gynecology; Visit Provider Obstetrics & Gynecology
DX: O32.6XX0 Maternal care for compound presentation, not applicable or unspecified (principal); Z37.0 Single live birth; O99.344 Other mental disorders complicating childbirth; O99.284 Endocrine, nutritional and metabolic diseases complicating childbirth; E03.9 Hypothyroidism, unspecified; O77.0 Labor and delivery complicated by meconium in amniotic fluid; O62.3 Precipitate labor; O70.1 Second degree perineal laceration during delivery; Z3A.39 39 weeks gestation of pregnancy; F31.9 Bipolar disorder, unspecified; Z87.891 Personal history of nicotine dependence
CPT/HCPCS: 36415; 85014; 85018; 85025; 86593; 86703; 86850; 86900; 86901; A9270; G0432; J2210; J2590; J2795; J3010; J7120